=== PATIENT | female | born 1955 | race African-American/Black ===

== ENCOUNTER 2023-02-01 07:53 | Inpatient (IN) ==
[2023-02-01] MEDS ORDERED: NS 1,000 ML IV 1,000 ML IV ONE (08:18)
--- NOTE | 2023-02-01 08:18 | DR.GENAD ---
HPI Time Seen Time Seen by Provider: 02/01/23 08:17 PCP Primary Care Physician: Lan Complaint/Symptoms Chief Complaint Doctors Comments: 67 y/o female presents feeling ill past 2 days. started with nausea, vomiting. Developed diarrhea next day. Having a dry cough, with sensation of shortness of breath. Running low grade temp. Having abdominal soreness, thinks from vomiting, as well as slight sore throat. Feeling weak. Chief Complaint:: Patient states she had N&V on Tuesday which subsided, Diarrhea onset yesterday and SOB with dyspnea. COVID-19 Coronavirus risk:travel/contact w/high risk person: No Has patient experienced Coronavirus symptoms: Yes Coronavirus symptoms experienced: Shortness of Breath Nurses notes reviewed Nurses Notes Review: Yes Source History Provided: Patient Mode of Arrival Mode of Arrival: Ambulatory Timing Onset of Chief Complaint: 01/30/23 PMH PMH Past Medical History: Yes Past Medical History: Diabetes and Hypertension Past Surgical History: Yes Surgical History: Cholecystectomy, EXHIBIT CLEANER Surgery, Hysterectomy and Ortho Surgery Family History History of Family Medical Conditions: Yes Family Medical History: Diabetes Mellitus Social History Does patient currently use any type of tobacco product: No Have you used tobacco products in the last 12 months: No Type of Tobacco Use: None Does any household member use tobacco: No Alcohol Use: None Do you use any recreational Drugs:: No Lives With: Alone Lives Where: Home Travel Risk Coronavirus risk:travel/contact w/high risk person: No Has patient experienced Coronavirus symptoms: Yes Coronavirus symptoms experienced: Shortness of Breath Infectious screening In the last 2 months have you had wt loss of >10#?: NO Have you had fever, night sweats or hemotysis?: No Have you traveled outside the country in the last 6 months?: No Isolation: Standard ROS Review of Systems Constitutional: Chills, Fever and Weakness Eyes: No Symptoms Reported ENTM: No Symptoms Reported Respiratoy: Non-Productive Cough and Short of Breath Cardiovascular: No Symptoms Reported Gastrointestinal/Abdominal: Diarrhea, Nausea and Vomiting Genitourinary: No Symptoms Reported Neurological: No Symptoms Reported Musculoskeletal: No Symptoms Reported Integumentary: No Symptoms Reported Psychiatric: No Symptoms Reported All Other Systems: Reviewed and Negative PE Vital Signs Vitals: Pulse Rate 122 O2 Sat by Pulse Oximetry 97 General General Appearance: Alert and In No Apparent Distress Eyes Eye exam: PERRL and EOMI ENT ENT Exam: Normal Oropharynx and Mucous Membranes Moist Neck Neck Exam: Normal Inspection Respiratory Respiratory Exam: Normal Lung Sounds Bilat; negative Accessory Muscle Use or Respiratory Distress Cardiovascular Cardiovascular Exam: Regular Rate, Normal Rhythm and Normal Heart Sounds Abdominal Exam Abdominal Exam: Normal Bowel Sounds and Soft; negative Tenderness, Guarding or Rebound Extremities Extremities Exam: Normal Inspection Back Back Exam: Normal Inspection Neurologic Neurological Exam: Alert, Oriented X3 and CN II-XII Intact; negative Motor Sensory Deficit Skin Skin Exam: Warm and Dry COURSE Treatment Treatment: PT ill x 2 days, PE benign, good vital signs. W/u initiated. Given IV fluids. 1049 - CXR with cardiomegaly, + hazy due to body habitus, radiology reads as no CHF, but appears a bit wet to me. Labs show elevated glucose 415 (is an insulin dependent diabetic). Given 8U regular insulin IV. BNP a bit elevated at 219, given IV lasix, 20 mg. Covid/flu negative. Pt was doing better at rest, + exertional dyspnea going to the bathroom. Recommend observation admission for probable mild CHF. Discussed with Dr Pascual, accepts the admission. ROR Labs Reviewed Laboratory Results Reviewed?: Yes Result Diagrams: 02/01/23 08:53 02/01/23 08:53 Laboratory: WBC 16.8 X10^3/uL (3.6-10.0) H 02/01/23 08:53 RBC 3.55 X10^6/uL (3.5-5.4) 02/01/23 08:53 Hgb 10.3 g/dL (12.0-16.0) L 02/01/23 08:53 Hct 30.6 % (36.0-47.0) L 02/01/23 08:53 MCV 86.4 fL (80.0-100.0) 02/01/23 08:53 MCH 29.1 pg (27.0-34.0) 02/01/23 08:53 MCHC 33.7 g/dL (33.0-35.0) 02/01/23 08:53 RDW 14.4 % (11.6-16.5) 02/01/23 08:53 Plt Count 134 X10^3/uL (150.0-450.0) L 02/01/23 08:53 MPV 10.0 fL (7.4-11.0) 02/01/23 08:53 Neut % (Auto) 84.8 % (42.0-75.0) H 02/01/23 08:53 Lymph % (Auto) 8.9 % (21.0-51.0) L 02/01/23 08:53 [place] % (Auto) 5.8 % (0.0-13.0) 02/01/23 08:53 Eos % (Auto) 0.1 % (0.9-2.9) L 02/01/23 08:53 Baso % (Auto) 0.4 % (0.2-1.0) 02/01/23 08:53 Neut # (Auto) 14.3 x10^3/uL (2.2-4.8) H 02/01/23 08:53 Lymph # (Auto) 1.5 X10^3/uL (1.3-2.9) 02/01/23 08:53 [place] # (Auto) 1.0 x10^3/uL (0.3-0.8) H 02/01/23 08:53 Eos # (Auto) 0.0 x10^3/uL (0.0-0.2) 02/01/23 08:53 Baso # (Auto) 0.1 X10^3/uL (0.0-0.1) 02/01/23 08:53 Absolute Nucleated RBC 0.0 /100WBC 02/01/23 08:53 Sodium 130 mmol/L (136-145) L 02/01/23 08:53 Corrected Sodium 138 mmol/L (136-145) 02/01/23 08:53 Potassium 4.2 mmol/L (3.5-5.1) 02/01/23 08:53 Chloride 95 mmol/L (98-107) L 02/01/23 08:53 Carbon Dioxide 22.4 mmol/L (21-32) 02/01/23 08:53 BUN 32 mg/dL (7-18) H 02/01/23 08:53 Creatinine 1.89 mg/dL (0.55-1.02) H 02/01/23 08:53 Est GFR (MDRD) Af Amer 34 (>60) L 02/01/23 08:53 Est GFR (MDRD) Non-Af 28 (>60) L 02/01/23 08:53 Glucose 415 mg/dL (65-99) H 02/01/23 08:53 Calcium 8.2 mg/dL (8.5-10.1) L 02/01/23 08:53 Corrected Calcium 9.2 mg/dL (8.5-10.1) 02/01/23 08:53 Total Bilirubin 1.00 mg/dL (0.2-1.0) 02/01/23 08:53 AST 33 Units/L (15-37) 02/01/23 08:53 ALT 26 Units/L (12-78) 02/01/23 08:53 Alkaline Phosphatase 90 Units/L (46-116) 02/01/23 08:53 B-Natriuretic Peptide 219 pg/mL (0-79) H 02/01/23 08:53 Total Protein 6.8 g/dL (6.4-8.2) 02/01/23 08:53 Albumin 2.7 g/dL (3.4-5.0) L 02/01/23 08:53 Globulin 4.1 g/dL (2.5-4.5) 02/01/23 08:53 Albumin/Globulin Ratio 0.7 Ratio (1.1-2.1) L 02/01/23 08:53 Lipase 31 Units/L (73-393) L 02/01/23 08:53 Specimen Type Clean catch urine 02/01/23 10:26 Urine Color Yellow (YELLOW) 02/01/23 10:26 Urine Appearance Cloudy (CLEAR) 02/01/23 10:26 Urine pH 5.0 (5.0 - 8.0) 02/01/23 10:26 Ur Specific [place] 1.025 (1.000-1.030) 02/01/23 10:26 Urine Protein 3+ (NEGATIVE) 02/01/23 10:26 Urine Glucose (UA) 2+ (NEGATIVE) 02/01/23 10:26 Urine Ketones 2+ (NEGATIVE) 02/01/23 10:26 Urine Blood 4+ (NEGATIVE) 02/01/23 10:26 Urine Nitrite Negative (NEGATIVE) 02/01/23 10:26 Urine Bilirubin Negative (NEGATIVE) 02/01/23 10:26 Urine Urobilinogen 1+ (NORMAL) 02/01/23 10:26 Ur Leukocyte Esterase 3+ (NEGATIVE) 02/01/23 10:26 SARS-CoV-2 (PCR) Negative (NEGATIVE) 02/01/23 08:14 Influenza Type A (PCR) Negative (NEGATIVE) 02/01/23 08:14 Influenza Type B (PCR) Negative (NEGATIVE) 02/01/23 08:14 RSV (PCR) Negative (NEGATIVE) 02/01/23 08:14 Opioid Opioid Risk Tool Age (Walter box if 16-45): No History of Preadolescent Sexual Abuse: No Total: 0 Total Score Risk Category: Low Risk Copyright: J Luis AVALOS predicting aberrant behaviors Discharge Plan Diagnosis Discharge Problem: Congestive heart failure, Acute febrile illness Discharge Plan Patient Disposition: ADMITTED INPATIENT Condition: Stable Orders to Discharge Patient Discharge Orders: Transfer (Routine); Ordered 02/01/23 Ordered By: Min El
[2023-02-01] MEDS ORDERED: NS 1,000 ML IV 1,000 ML ONE (08:21)
--- NOTE | 2023-02-01 08:58 | RAD ---
HISTORYCough, dyspneaSTUDYChest AP portableCOMPARISONNoneFINDINGSPatient's body habitus limits the efficacy of portable radiography. The heart is enlarged. No congestive heart failure is noted. No definite acute alveolar infiltrates or pleural effusions are identified. Bony thorax is unremarkable.IMPRESSIONCardiomegaly without congestive heart failureNo definite infiltratesElectronically signed by: ESME PEREZ (February 01, 2023 08:56:57)
[2023-02-01] MEDS ORDERED: ZOFRAN INJ 4 MG VIAL IVP ONE (09:19)
[2023-02-01] MEDS ORDERED: ZOFRAN INJ 4 MG VIAL ONE (09:20)
[2023-02-01 09:26] LABS: BASOPHILS # (AUTO) 0.1 X10^3/uL (0.0-0.1); BASOPHILS % (AUTO) 0.4 % (0.2-1.0); EOSINOPHILS % (AUTO) 0.1 % (0.9-2.9); HEMATOCRIT 30.6 % (36.0-47.0); HEMOGLOBIN 10.3 g/dL (12.0-16.0); LYMPHOCYTES # (AUTO) 1.5 X10^3/uL (1.3-2.9); LYMPHOCYTES % (AUTO) 8.9 % (21.0-51.0); MEAN CORPUSCULAR HEMOGLOBIN 29.1 pg (27.0-34.0); MEAN CORPUSCULAR HGB CONC 33.7 g/dL (33.0-35.0); MEAN CORPUSCULAR VOLUME 86.4 fL (80.0-100.0); MONOCYTES % (AUTO) 5.8 % (0.0-13.0); NEUTROPHILS # (AUTO) 14.3 x10^3/uL (2.2-4.8); NEUTROPHILS % (AUTO) 84.8 % (42.0-75.0); PLATELET COUNT 134 X10^3/uL (150.0-450.0); RED BLOOD COUNT 3.55 X10^6/uL (3.5-5.4); RED CELL DISTRIBUTION WIDTH 14.4 % (11.6-16.5); WHITE BLOOD COUNT 16.8 X10^3/uL (3.6-10.0)
[2023-02-01 09:40] LABS: ALBUMIN 2.7 g/dL (3.4-5.0); CALCIUM 8.2 mg/dL (8.5-10.1); CARBON DIOXIDE 22.4 mmol/L (21-32); COR CA(FOR HYPOALB) 9.2 mg/dL (8.5-10.1); CREATININE 1.89 mg/dL (0.55-1.02); POTASSIUM 4.2 mmol/L (3.5-5.1); TOTAL PROTEIN 6.8 g/dL (6.4-8.2)
[2023-02-01 10:43] LABS: BILIRUBIN,URINE NEGATIVE (NEGATIVE); BLOOD/HEMOGLOBIN,URINE 4+ (NEGATIVE); GLUCOSE, URINE 2+ (NEGATIVE); KETONES,URINE 2+ (NEGATIVE); LEUKOCYTE ESTERASE ,URINE 3+ (NEGATIVE); NITRITES,URINE NEGATIVE (NEGATIVE); PROTEIN,URINE 3+ (NEGATIVE); UROBILINOGEN,URINE 1+ (NORMAL)
[2023-02-01 10:47] LABS: COLOR,URINE YELLOW (YELLOW)
[2023-02-01] MEDS ORDERED: NovoLIN R (or HumuLIN R) ONE ×3 (10:48→16:43)
[2023-02-01] MEDS ORDERED: NovoLIN R (or HumuLIN R) IV ONE (10:48)
[2023-02-01] MEDS ORDERED: LASIX IVP ONE (10:49)
[2023-02-01 10:54] LABS: APPEARANCE,URINE CLOUDY (CLEAR)
[2023-02-01] MEDS ORDERED: LASIX ONE ×2 (10:58→16:24)
[2023-02-01] MEDS ORDERED: TYLENOL 500 MG TAB EXTRA STRENGTH PO ONE ×2 (12:46→16:47)
[2023-02-01] MEDS ORDERED: TYLENOL 500 MG TAB EXTRA STRENGTH PO STA (12:53)
[2023-02-01] MEDS ORDERED: LOVENOX INJ 30 MG SYR SC ONE (16:24)
[2023-02-01] MEDS: LOVENOX INJ 30 MG SYR SC SCH (16:37)
[2023-02-01] MEDS: LASIX IVP SCH (16:41)
[2023-02-01] MEDS: NovoLIN R (or HumuLIN R) SUBCUT PRN ×2 (16:46→20:41)
[2023-02-01] MEDS: TYLENOL 500 MG TAB EXTRA STRENGTH PO PRN ×2 (16:48→22:52)
[2023-02-01] MEDS ORDERED: LOMOTIL PO PRN (17:30)
[2023-02-01] MEDS ORDERED: SNACK - Diabetic Appropriate PO SCH ×2 (20:00)
[2023-02-01] MEDS: SNACK - Diabetic Appropriate PO SCH (20:10)
[2023-02-01] MEDS: AMARYL TAB 4 MG PO SCH (20:38)
[2023-02-01] MEDS ORDERED: PROVENTIL NEB TX 0.083% 2.5MG/ 3ML ONE (22:23)
[2023-02-01] MEDS ORDERED: XOPENEX 1.25 MG/3 ML NEBULE NEB ONE (22:25)
[2023-02-01] MEDS: ZOFRAN INJ 4 MG VIAL IVP PRN (22:33)
[2023-02-02 05:15] LABS: BASOPHILS % (AUTO) 0.2 % (0.2-1.0); EOSINOPHILS % (AUTO) 0.2 % (0.9-2.9); HEMATOCRIT 27.9 % (36.0-47.0); HEMOGLOBIN 9.4 g/dL (12.0-16.0); LYMPHOCYTES # (AUTO) 1.1 X10^3/uL (1.3-2.9); LYMPHOCYTES % (AUTO) 6.6 % (21.0-51.0); MEAN CORPUSCULAR HEMOGLOBIN 29.2 pg (27.0-34.0); MEAN CORPUSCULAR HGB CONC 33.8 g/dL (33.0-35.0); MEAN CORPUSCULAR VOLUME 86.4 fL (80.0-100.0); MEAN PLATELET VOLUME 10.3 fL (7.4-11.0); MONOCYTES # (AUTO) 1.1 x10^3/uL (0.3-0.8); MONOCYTES % (AUTO) 6.2 % (0.0-13.0); NEUTROPHILS # (AUTO) 14.9 x10^3/uL (2.2-4.8); NEUTROPHILS % (AUTO) 86.8 % (42.0-75.0); PLATELET COUNT 104 X10^3/uL (150.0-450.0); RED BLOOD COUNT 3.23 X10^6/uL (3.5-5.4); RED CELL DISTRIBUTION WIDTH 14.5 % (11.6-16.5); WHITE BLOOD COUNT 17.1 X10^3/uL (3.6-10.0)
[2023-02-02 05:26] LABS: ALBUMIN 2.2 g/dL (3.4-5.0); CARBON DIOXIDE 24.8 mmol/L (21-32); COR CA(FOR HYPOALB) 9.4 mg/dL (8.5-10.1); CREATININE 1.9 mg/dL (0.55-1.02); POTASSIUM 3.8 mmol/L (3.5-5.1); TOTAL PROTEIN 6.1 g/dL (6.4-8.2)
[2023-02-02 05:44] LABS: BAND NEUTROPHILS % 7 % (0-10); PLATELET MORPHOLOGY COMMENT NORMAL (NORMAL)
[2023-02-02] MEDS: NovoLIN R (or HumuLIN R) SUBCUT PRN ×4 (05:45→20:40)
[2023-02-02] MEDS ORDERED: XOPENEX 1.25 MG/3 ML NEBULE NEB PRN (06:11)
[2023-02-02] MEDS: APRESOLINE TAB 25 MG PO SCH (08:37)
[2023-02-02] MEDS: LOVENOX INJ 30 MG SYR SC SCH (08:37)
[2023-02-02] MEDS: LASIX IVP SCH (08:37)
[2023-02-02] MEDS: AMARYL TAB 4 MG PO SCH ×2 (08:37→20:30)
[2023-02-02] MEDS: ZOFRAN INJ 4 MG VIAL IVP PRN (08:41)
[2023-02-02] MEDS: XOPENEX 1.25 MG/3 ML NEBULE NEB PRN (12:11)
[2023-02-02] MEDS ORDERED: CATAPRES TAB 0.1 MG PO ONE ×2 (12:57→18:32)
[2023-02-02] MEDS: ROCEPHIN VIAL 1 GRAM 1 G in NS 100 ML IV 100 ML IV SCH (12:58)
[2023-02-02] MEDS: NS 1,000 ML IV 1,000 ML IV SCH (12:58)
[2023-02-02] MEDS ORDERED: CATAPRES TAB 0.1 MG ONE ×2 (12:59→18:35)
[2023-02-02] MEDS: MYCOLOG-II CREAM TOP SCH ×2 (14:17→20:43)
[2023-02-02] MEDS: SNACK - Diabetic Appropriate PO SCH (20:43)
[2023-02-02] MEDS: TYLENOL 500 MG TAB EXTRA STRENGTH PO PRN (20:49)
--- NOTE | 2023-02-02 22:47 | RAD ---
HISTORYcentral line placementSTUDYCHEST, 1 VIEWCOMPARISONNone.TECHNIQUEA single frontal view of the chest was obtained.FINDINGSThere is a left subclavian central line with its tip overlying the expected location of the superior vena cava. There are multiple EKG leads and wires seen overlying the patient. There is moderate cardiomegaly with left ventricular hypertrophy. There is no focal infiltrate. There is no effusion. There is no pneumothorax. The osseous structures are intact.IMPRESSIONLeft central line in situ.No focal infiltrate or effusion.Moderate cardiomegaly.Electronically signed by: Shelly Lin (February 02, 2023 22:45:46)
--- NOTE | 2023-02-02 22:50 | DR.H&P ---
H&P - History & Physical for Day of: H&P Date: 02/01/23 - Chief Complaint Chief Complaint: ABDOMINAL TENDERNESS, NAUSEA, VOMITING, WEAKNESS, SHORTNESS OF BREATH - History of Present Illness History of Present Illness: IS A 67 YEAR OLD PATIENT OF . SHE PRESENED TO THE ER WITH COMPLAINTS OF NAUSEA, VOMITING, AND DIARRHEA FOR THE PAST TWO DAYS. SHE ALSO REPORTS HAVING A NON-PRODUCTIVE COUGH AND SHORTNESS OF BREATH. SHE ADMITS TO FEVER, ABDOMINAL TENDERNESS, GENERALIZED WEAKNESS, AND A SLIGHT SORE THROAT. SHORTNESS OF BREATH IS WORSE ON EXERTION. HER PMH INCLUDES DM II, HTN, ARTHRITIS, CHOLECYSTECTOMY, DIRECTOR CARD SURGERY, HYSTERECTOMY, AND ORTHO SURGERY. SHE CURRENTLY TAKES LASIX 40MG DAILY FOR FREQUENT SWELLING OF THE LOWER EXTREMITIES, BUT DENIES DIAGNOSIS OF SHORTNESS OF BREATH. ON ARRIVAL TO THE HOSPITAL, HER VITAS WERE 101.3-103-20-96%-141/69. LABS WERE OBTAINED. WBC 16.8, RBC 3.55, HGB 10.3, HCT 30.6, PLT COUNT 134, SODIUM 130, POTASSIUM 4.2, CHLORIDE 95, BUN 32, CREATININE 1.89, GLUCOSE 415, CALCIUM 8.2, TOTAL BILI 1.00, AST 33, ALT 26, ALK PHOS 90, BNP 219, TOTAL PROTEIN 6.8, ALBUMIN 2.7, LIPASE 31. A URINALYSIS WAS OBTAINED AND REVEALED: LEUKOCYTES 3+, BLOOD 4+, PROTEIN 3+, KETONES 2+, NITRITES NEGATIVE. COVID, INFLUENZA, AND RSV WERE NEGATIVE. URINE AND BLOOD CULTURES WERE SET UP. A CHEST XRAY WAS OBTAINED. Patient's body habitus limits the efficacy of portable radiography. The heart is enlarged. No congestive heart failure is noted. No definite acute alveolar infiltrates or pleural effusions are identified. Bony thorax is unremarkable. IN THE ER, SHE WAS GIVEN A NORMAL SALINE BOLUS, ZOFRAN 4MG IV X 1 DOSE, HUMULIN R 8 UNITS IV X 2, LASIX 20MG IV X 1, XOPENEX NEB X 1, AND TYLENOL 1G PO X 1. SHE WAS ADMITTED TO THE HOSPITAL INPATIENT STATUS FOR FURTHER EVALUATION AND TREATMENT OF URINARY TRACT INFECTION, SUSPECTED SEPSIS, ACUTE RENAL INSUFFICIENCY, DEHYDRATION, INTRACTABLE NAUSEA AND VOMITING, AND SHORTNESS OF BREATH. SHE WAS STARTED ON NORMAL SALINE AT 75 ML/HR, CEFTRIAXONE 1G IV DAILY, OTBS ACHS, HUMULIN R SLIDING SCALE, ZOFRAN 4MG IV Q6H PRN, XOPENEX NEBS QID PRN, LOVENOX 30MG SC DAILY, TYLENOL 1G PO Q6H PRN, LOMOTIL BID PRN, AMARYL 4MG PO BID, APRESOLINE 50MG DAILY. OTHERWISE, WE PLAN TO FOLLOW-UP WITH AM LABS AND CONTINUE TO MONITOR. TIME SPENT ON CLINICAL ASSESSMENT, REVIEWING LABS AND IMAGING, DECISION MAKING, AND DOCUMENTATION GREATER THAN 45 MINUTES. PRELIMINARY URINE CULTURE IS POSITIVE FOR GRAM NEGATIVE RODS. IT WAS ALSO REPORTED THAT POSITIVE BLOOD CULTURES WERE DETECTED. - Past Medical History Past Medical History: Arthritis, Diabetes, Hypertension - Past Surgical History Surgical History: Cholecystectomy, Hysterectomy, Ortho Surgery - Family History Family Medical History: Diabetes Mellitus - Social History Does patient currently use any type of tobacco product: No Have you used tobacco products in the last 12 months: No Type of Tobacco Use: None Does any household member use tobacco: No Alcohol Use: None Drug Use: None - Medications Home Medications: No Known Allergies Allergy (Verified 02/01/23 13:51) CONTINUE taking the following medications diphenoxylate-atropine 2.5 mg-0.025 mg tablet (Lomotil) 1 tab PO BID PRN 02/01/23 [History] furosemide 40 mg tablet (Lasix) 40 mg PO DAILY 02/01/23 [History] glimepiride 4 mg tablet 4 mg PO BID 02/01/23 [History] hydralazine 50 mg tablet 50 mg PO DAILY 02/01/23 [History] ibuprofen 800 mg tablet 800 mg PO BID PRN 02/01/23 [History] - Review of Systems Constitutional: Fever, Chills, Weakness Eyes: No Symptoms Reported ENT: No Symptoms Reported Respiratory: Cough, Shortness of Breath, SOB with Excertion Cardiovascular: No Symptoms Reported Gastrointestinal: Nausea, Vomiting, Abdominal Pain Genitourinary: Dysuria Musculoskeletal: No Symptoms Reported Skin: No Symptoms Reported Neurological: Weakness - Physical Exam Vital Signs: Temperature 100 F Pulse Rate [Left Radial] 104 Pulse Rate 115 Respiratory Rate 24 Blood Pressure [Left Arm] 136/64 Blood Pressure 141/69 O2 Sat by Pulse Oximetry 99 Oriented: Normal Eyes: Normal Ear: Normal Nose: Normal Throat: Normal Respiratory: Diminished Throughout Cardiovascular: Edema (TRACE EDEMA TO BILATERAL LOWER EXTREMITIES ) : Normal Auscultation: Bowel Sounds: Normal Palpation: Normal Tenderness: Suprapubic Skin: Normal Musculoskeletal: Normal Psychiatric: Normal Mood Description: Calm Affect: Normal Speech Pattern: Clear - Assessment/Plan (1) Urinary tract infection Qualifiers: Urinary tract infection type: acute cystitis Hematuria presence: with hematuria Qualified Code(s): N30.01 - Acute cystitis with hematuria Status: Acute Plan: ADMIT, NORMAL SALINE AT 75 ML/HR, CEFTRIAXONE 1G IV DAILY, OTBS ACHS, HUMULIN R SLIDING SCALE, ZOFRAN 4MG IV Q6H PRN, XOPENEX NEBS QID PRN, LOVENOX 30MG SC DAILY, TYLENOL 1G PO Q6H PRN, LOMOTIL BID PRN, AMARYL 4MG PO BID, APRESOLINE 50MG DAILY. (2) Sepsis Qualifiers: Sepsis type: sepsis due to unspecified organism Severe sepsis acute organ dysfunction type: acute renal failure Severe sepsis shock status: without septic shock Status: Acute (3) Acute renal insufficiency Status: Acute (4) Dehydration Status: Acute (5) Intractable nausea and vomiting Status: Acute (6) Shortness of breath Status: Acute (7) Hypertension Qualifiers: Hypertension type: primary hypertension Qualified Code(s): I10 - Essential (primary) hypertension Status: Chronic (8) Diabetes mellitus Qualifiers: Diabetes mellitus type: type 2 Diabetes mellitus tank terminal gauger insulin use: with tank terminal gauger use Diabetes mellitus complication status: with hyperglycemia Qualified Code(s): E11.65 - Type 2 diabetes mellitus with hyperglycemia; Z79.4 - tank terminal gauger (current) use of insulin Status: Chronic - Allergies Allergies/Adverse Reactions: Allergies Allergy/AdvReac Type Severity Reaction Status Date / Time No Known Allergies Allergy Verified 02/01/23 13:51
[2023-02-03] MEDS: XOPENEX 1.25 MG/3 ML NEBULE NEB PRN ×4 (02:25→21:39)
[2023-02-03] MEDS: NS 1,000 ML IV 1,000 ML IV SCH ×4 (02:29→20:36)
[2023-02-03] MEDS: TYLENOL 500 MG TAB EXTRA STRENGTH PO PRN ×3 (02:50→20:42)
[2023-02-03 05:04] LABS: BASOPHILS % (AUTO) 0.3 % (0.2-1.0); EOSINOPHILS # (AUTO) 0.1 x10^3/uL (0.0-0.2); EOSINOPHILS % (AUTO) 0.5 % (0.9-2.9); HEMATOCRIT 27.6 % (36.0-47.0); HEMOGLOBIN 9.3 g/dL (12.0-16.0); LYMPHOCYTES # (AUTO) 0.9 X10^3/uL (1.3-2.9); MEAN CORPUSCULAR HEMOGLOBIN 28.9 pg (27.0-34.0); MEAN CORPUSCULAR HGB CONC 33.8 g/dL (33.0-35.0); MEAN CORPUSCULAR VOLUME 85.6 fL (80.0-100.0); MEAN PLATELET VOLUME 10.2 fL (7.4-11.0); MONOCYTES # (AUTO) 0.4 x10^3/uL (0.3-0.8); MONOCYTES % (AUTO) 3.3 % (0.0-13.0); NEUTROPHILS # (AUTO) 10.9 x10^3/uL (2.2-4.8); NEUTROPHILS % (AUTO) 88.9 % (42.0-75.0); PLATELET COUNT 94 X10^3/uL (150.0-450.0); RED BLOOD COUNT 3.22 X10^6/uL (3.5-5.4); RED CELL DISTRIBUTION WIDTH 14.5 % (11.6-16.5); WHITE BLOOD COUNT 12.3 X10^3/uL (3.6-10.0)
[2023-02-03 05:13] LABS: CALCIUM 7.7 mg/dL (8.5-10.1); CARBON DIOXIDE 21.7 mmol/L (21-32); COR CA(FOR HYPOALB) 9.3 mg/dL (8.5-10.1); CREATININE 1.89 mg/dL (0.55-1.02); POTASSIUM 3.3 mmol/L (3.5-5.1); TOTAL PROTEIN 6.2 g/dL (6.4-8.2)
[2023-02-03 05:14] LABS: PLATELET MORPHOLOGY COMMENT NORMAL (NORMAL)
--- NOTE | 2023-02-03 05:50 | RAD ---
HISTORYShortness of breathSTUDYSingle-view [id number] trachea is midline. The cardiac silhouette is enlarged with a tortuous thoracic aorta. Stable left-sided central venous catheter is observed. The lungs are clear without focal infiltrate or effusion. The bony thorax is unremarkable.IMPRESSIONNo acute cardiopulmonary disease.Electronically signed by: COLLIN CABRERA (February 03, 2023 05:49:03)
[2023-02-03] MEDS: NovoLIN R (or HumuLIN R) SUBCUT PRN ×3 (06:18→18:03)
[2023-02-03] MEDS ORDERED: BUTT CREAM (COMPOUND) ONE (07:57)
[2023-02-03] MEDS: APRESOLINE TAB 25 MG PO SCH (10:11)
[2023-02-03] MEDS: AMARYL TAB 4 MG PO SCH ×2 (10:11→20:36)
[2023-02-03] MEDS: ROCEPHIN VIAL 1 GRAM 1 G in NS 100 ML IV 100 ML IV SCH (10:12)
[2023-02-03] MEDS: MYCOLOG-II CREAM TOP SCH ×2 (10:30→20:47)
[2023-02-03] MEDS: SNACK - Diabetic Appropriate PO SCH (20:36)
[2023-02-03] MEDS: ULTRAM PO PRN (22:58)
[2023-02-04] MEDS: ULTRAM PO PRN ×2 (04:29→20:58)
[2023-02-04] MEDS: NS 1,000 ML IV 1,000 ML IV SCH ×2 (05:08→19:02)
[2023-02-04 05:10] LABS: BASOPHILS % (AUTO) 0.3 % (0.2-1.0); EOSINOPHILS % (AUTO) 0.3 % (0.9-2.9); HEMATOCRIT 27.2 % (36.0-47.0); HEMOGLOBIN 9.2 g/dL (12.0-16.0); LYMPHOCYTES # (AUTO) 1.4 X10^3/uL (1.3-2.9); LYMPHOCYTES % (AUTO) 10.8 % (21.0-51.0); MEAN CORPUSCULAR HEMOGLOBIN 28.9 pg (27.0-34.0); MEAN CORPUSCULAR HGB CONC 33.6 g/dL (33.0-35.0); MEAN CORPUSCULAR VOLUME 85.9 fL (80.0-100.0); MEAN PLATELET VOLUME 10.3 fL (7.4-11.0); MONOCYTES # (AUTO) 1.2 x10^3/uL (0.3-0.8); MONOCYTES % (AUTO) 9.3 % (0.0-13.0); NEUTROPHILS # (AUTO) 10.4 x10^3/uL (2.2-4.8); NEUTROPHILS % (AUTO) 79.3 % (42.0-75.0); PLATELET COUNT 96 X10^3/uL (150.0-450.0); RED BLOOD COUNT 3.17 X10^6/uL (3.5-5.4); RED CELL DISTRIBUTION WIDTH 14.7 % (11.6-16.5)
[2023-02-04 05:27] LABS: ALBUMIN 1.9 g/dL (3.4-5.0); CALCIUM 7.9 mg/dL (8.5-10.1); CARBON DIOXIDE 22.2 mmol/L (21-32); COR CA(FOR HYPOALB) 9.6 mg/dL (8.5-10.1); CREATININE 1.51 mg/dL (0.55-1.02); MAGNESIUM 1.7 mg/dL (2.0-2.9); POTASSIUM 3.5 mmol/L (3.5-5.1); TOTAL PROTEIN 6.3 g/dL (6.4-8.2)
[2023-02-04] MEDS: NovoLIN R (or HumuLIN R) SUBCUT PRN ×4 (05:59→20:58)
[2023-02-04] MEDS: XOPENEX 1.25 MG/3 ML NEBULE NEB PRN ×2 (07:59→19:43)
[2023-02-04] MEDS: ROCEPHIN VIAL 1 GRAM 1 G in NS 100 ML IV 100 ML IV SCH (08:29)
[2023-02-04] MEDS: AMARYL TAB 4 MG PO SCH ×2 (08:30→20:57)
[2023-02-04] MEDS: APRESOLINE TAB 25 MG PO SCH (08:30)
[2023-02-04] MEDS: MYCOLOG-II CREAM TOP SCH ×2 (08:31→20:59)
[2023-02-04] MEDS: INVanz INJ 1 GRAM VIAL 1 G in NS 100 ML IV 100 ML IV SCH (09:05)
[2023-02-04] MEDS: VSL#3 PO SCH (11:20)
[2023-02-04] MEDS: ZOFRAN INJ 4 MG VIAL IVP PRN (15:10)
[2023-02-04] MEDS: TYLENOL 500 MG TAB EXTRA STRENGTH PO PRN (16:31)
--- NOTE | 2023-02-04 17:37 | DR.OPNOTE ---
OP NOTE Pre-Op Diagnosis: congestive heart failure, lack of IV access Post-Op Diagnosis: same Procedure Date Date Of Procedure: 02/02/23 Procedure: PROCEDURE: LEFT SUBCLAVIAN VEIN CENTRAL VENOUS ACCESS. NARRATIVE: The patient was in the ICU and placed in Trendelenburg position. The left neck and chest prepped and draped is sterile fashion. The skin underlying the left clavicle infiltrated with 1% Xylocaine . 16 gauge needle used to puncture the left subclavian vein with aspiration of blood. 0.035 inch guide wire placed. Incision made over the guide wire with a number 11 knife blade and a dilator place over the guide wire into the left subclavian vein. The dilator was removed and the catheter threaded over guide wire into the left subclavian vein . All three ports were aspirated of blood and flushed with heparinized saline . The catheter secured to the skin with interrupted silk sutures . Sterile dressing applied Post-procedure chest x-ray showed good placement and no pneumothorax. Patient tolerated this well. Type of Anesthesia: Local (1 % Xylocaine ) Findings: as above Type of Fluids Used:: Normal Saline EBL: minimal Complications:: none Disposition/Condition: Pt. tolerated procedure without difficulty.
[2023-02-04] MEDS: SNACK - Diabetic Appropriate PO SCH (19:02)
[2023-02-04] MEDS ORDERED: K-RIDER 10 MEQ/NS 100 ML 10 MEQ/100 ML BAG IV PRN (20:27)
[2023-02-04] MEDS ORDERED: KLOR-CON PO PRN (20:27)
[2023-02-04] MEDS ORDERED: POTASSIUM CHL 40 MEQ/NS 0.45% 500 ML IV PRN (20:27)
[2023-02-04] MEDS ORDERED: K-DUR TAB 20 MEQ PO PRN (20:27)
[2023-02-04] MEDS ORDERED: MICRO K EXTEN CAP 10 MEQ PO PRN (20:27)
[2023-02-04] MEDS ORDERED: POTASSIUM CHLORIDE LIQ 20 MEQ UDC PO PRN (20:27)
[2023-02-04] MEDS ORDERED: POTASSIUM CHL 60 MEQ/NS 0.45% 500 ML IV PRN (20:27)
[2023-02-04] MEDS: MAGNESIUM SULFATE 1 GRAM/100 mL PREMIX 1 G/100 ML BAG IV PRN ×2 (20:58→23:00)
[2023-02-04] MEDS: BUTT CREAM (COMPOUND) TOP PRN (20:59)
[2023-02-04] MEDS: NORCO 5/325 MG TAB PO PRN (23:00)
[2023-02-04] MEDS ORDERED: MORPHINE SULFATE INJ 2 MG INJ IVP PRN (23:59)
[2023-02-05] MEDS: ULTRAM PO PRN ×2 (01:16→20:34)
--- NOTE | 2023-02-05 01:25 | PCM.PROG ---
Progress Note - Progress Note for Day of Date of Exam: 02/03/23 - Subjective Subjective: IS CURRENTLY INPATIENT STATUS FOR TREATMENT OF SEPSIS DUE TO UTI, ACUTE RENAL INSUFFICIENCY, DEHYDRATION, INTRACTABLE NAUSEA AND VOMITING, AND SHORTNESS OF BREATH. SHE HAS A PMH OF HTN AND DM II. TODAY, SHE IS ALERT AND ORIENTED, SITTING UP IN CHAIR ON MORNING ROUNDS. SHE CONTINUES TO COMPLAIN OF SUPRAPUBIC PAIN AND NAUSEA THIS MORNING. SHE DOES REPORT SLIGHT IMPROVEMENT IN SYMPTOMS TODAY. ON EXAMINATION, HEART IS REGULAR IN RATE AND RHYTHM. BILATERAL LUNGS ARE NOTED WITH DIMINISHED LUNG SOUNDS THROUGHOUT. ABDOMEN IS ROUND, SOFT, AND NOTED WITH SUPRAPUBIC TENDERNESS. GOOD MOVEMENT NOTED TO UPPER AND LOWER EXTREMITIES. TRACE EDEMA NOTED TO BILATERAL LOWER EXTREMITIES. HER VITALS THIS MORNING ARE: 97.5-93-25-100%-102/54. LABS WERE OBTAINED. WBC 12.3, RBC 3.22, HGB 9.3, HCT 27.6, PLT COUNT 94, SODIUM 129, POTASSIUM 3.3, CHLORIDE 94, BUN 39, CREATININE 1.89, GLUCOSE 233, CALCIUM 7.7, TOTAL BILI 1.40, AST 27, ALT 24, ALK PHOS 111, TOTAL PROTEIN 6.2, ALBUMIN 2.0. URINE AND BLOOD CULTURES ARE PENDING. PRELIMINARY CULTURES ARE POSITIVE FOR GROWTH OF GRAM NEGATIVE RODS. A CHEST XRAY WAS OBTAINED AND REVEALED: trachea is midline. The cardiac silhouette is enlarged with a tortuous thoracic aorta. Stable left-sided central venous catheter is observed. The lungs are clear without focal infiltrate or effusion. The bony thorax is unremarkable. SHE IS CURRENTLY RECEIVING NORMAL SALINE AT 75 ML/HR, CEFTRIAXONE 1G IV DAILY, OTBS ACHS, HUMULIN R SLIDING SCALE, ZOFRAN 4MG IV Q6H PRN, XOPENEX NEBS QID PRN, LOVENOX 30MG SC DAILY, TYLENOL 1G PO Q6H PRN, LOMOTIL BID PRN, AMARYL 4MG PO BID, APRESOLINE 50MG DAILY. WE WILL CONTINUE WITH CURRENT PLAN OF CARE TODAY. OTHERWISE, WE PLAN TO FOLLOW-UP WITH AM LABS AND CONTINUE TO MONITOR. TIME SPENT ON CLINICAL ASSESSMENT, REVIEWING LABS AND IMAGING, DECISION MAKING, AND DOCUMENTATION GREATER THAN 45 MINUTES. - Past Medical Family Social History Past Med/Fam/Surg Hx: No changes since H&P Allergies: Allergies No Known Allergies Allergy (Verified 02/01/23 13:51) - Review of Systems ROS: No change since H&P - Vital Signs and I&O's Vital Signs: Temperature 98.7 F Pulse Rate [Left Radial] 94 Pulse Rate 100 Respiratory Rate 24 Blood Pressure [Left Arm] 126/59 Blood Pressure 164/90 O2 Sat by Pulse Oximetry 97 Intake and Output: Intake & Output 02/02/23 02/03/23 02/04/23 02/05/23 11:59 11:59 11:59 11:59 Intake Total 1080 / 1080 2987 / 2987 4706 / 4706 1806 / 1806 Balance 1080 / 1080 2987 / 2987 4706 / 4706 1806 / 1806 - Physical Exam Oriented: Normal Eyes: Normal Ear: Normal Nose: Normal Throat: Normal Respiratory: Generalized, Diminished Cardiovascular: Edema (TRACE EDEMA TO BILATERAL LOWER EXTREMITIES ) : Normal Auscultation: Bowel Sounds: Normal Palpation: Normal Tenderness: Suprapubic Skin: Normal Musculoskeletal: Normal Psychiatric: Normal Mood Description: Calm Affect: Normal Speech Pattern: Clear - Laboratory and Diagnostics Result Diagrams: 02/04/23 04:12 02/04/23 04:12 Labs: 02/01/23 22:36 Blood Blood Culture - Final Escherichia Coli 02/01/23 22:30 Blood Blood Culture - Final Escherichia Coli 02/01/23 10:24 Urine,Clean Catch Urine Culture - Final Escherichia Coli Laboratory WBC 13.0 X10^3/uL (3.6-10.0) H 02/04/23 04:12 RBC 3.17 X10^6/uL (3.5-5.4) L 02/04/23 04:12 Hgb 9.2 g/dL (12.0-16.0) L 02/04/23 04:12 Hct 27.2 % (36.0-47.0) L 02/04/23 04:12 MCV 85.9 fL (80.0-100.0) 02/04/23 04:12 MCH 28.9 pg (27.0-34.0) 02/04/23 04:12 MCHC 33.6 g/dL (33.0-35.0) 02/04/23 04:12 RDW 14.7 % (11.6-16.5) 02/04/23 04:12 Plt Count 96 X10^3/uL (150.0-450.0) L 02/04/23 04:12 Plt Count Comment Decreased (ADEQUATE) A 02/03/23 04:13 MPV 10.3 fL (7.4-11.0) 02/04/23 04:12 Neut % (Auto) 79.3 % (42.0-75.0) H 02/04/23 04:12 Lymph % (Auto) 10.8 % (21.0-51.0) L 02/04/23 04:12 [place] % (Auto) 9.3 % (0.0-13.0) 02/04/23 04:12 Eos % (Auto) 0.3 % (0.9-2.9) L 02/04/23 04:12 Baso % (Auto) 0.3 % (0.2-1.0) 02/04/23 04:12 Neut # (Auto) 10.4 x10^3/uL (2.2-4.8) H 02/04/23 04:12 Lymph # (Auto) 1.4 X10^3/uL (1.3-2.9) 02/04/23 04:12 [place] # (Auto) 1.2 x10^3/uL (0.3-0.8) H 02/04/23 04:12 Eos # (Auto) 0.0 x10^3/uL (0.0-0.2) 02/04/23 04:12 Baso # (Auto) 0.0 X10^3/uL (0.0-0.1) 02/04/23 04:12 Absolute Nucleated RBC 0.0 /100WBC 02/04/23 04:12 Total Counted 100 02/03/23 04:13 Neutrophils % (Manual) 92 % (39-76) H 02/03/23 04:13 Band Neutrophils % 7 % (0-10) 02/02/23 04:01 Lymphocytes % (Manual) 7 % (13-43) L 02/03/23 04:13 Monocytes % (Manual) 1 % (4-9) L 02/03/23 04:13 Plt Morphology Comment Normal (NORMAL) 02/03/23 04:13 RBC Morphology Normal (NORMAL) 02/03/23 04:13 Sodium 130 mmol/L (136-145) L 02/04/23 04:12 Corrected Sodium 134 mmol/L (136-145) L 02/04/23 04:12 Potassium 3.5 mmol/L (3.5-5.1) 02/04/23 04:12 Chloride 96 mmol/L (98-107) L 02/04/23 04:12 Carbon Dioxide 22.2 mmol/L (21-32) 02/04/23 04:12 BUN 41 mg/dL (7-18) H 02/04/23 04:12 Creatinine 1.51 mg/dL (0.55-1.02) H 02/04/23 04:12 Est GFR (MDRD) Af Amer 44 (>60) L 02/04/23 04:12 Est GFR (MDRD) Non-Af 37 (>60) L 02/04/23 04:12 Glucose 265 mg/dL (65-99) H 02/04/23 04:12 POC Glucose (mg/dL) 271 mg/dL (65-99) H 02/04/23 19:18 Calcium 7.9 mg/dL (8.5-10.1) L 02/04/23 04:12 Corrected Calcium 9.6 mg/dL (8.5-10.1) 02/04/23 04:12 Magnesium 1.7 mg/dL (2.0-2.9) L 02/04/23 04:12 Total Bilirubin 0.80 mg/dL (0.2-1.0) 02/04/23 04:12 AST 22 Units/L (15-37) 02/04/23 04:12 ALT 25 Units/L (12-78) 02/04/23 04:12 Alkaline Phosphatase 93 Units/L (46-116) 02/04/23 04:12 B-Natriuretic Peptide 219 pg/mL (0-79) H 02/01/23 08:53 Total Protein 6.3 g/dL (6.4-8.2) L 02/04/23 04:12 Albumin 1.9 g/dL (3.4-5.0) L 02/04/23 04:12 Globulin 4.4 g/dL (2.5-4.5) 02/04/23 04:12 Albumin/Globulin Ratio 0.4 Ratio (1.1-2.1) L 02/04/23 04:12 Lipase 31 Units/L (73-393) L 02/01/23 08:53 Specimen Type Clean catch urine 02/01/23 10:26 Urine Color Yellow (YELLOW) 02/01/23 10:26 Urine Appearance Cloudy (CLEAR) 02/01/23 10:26 Urine pH 5.0 (5.0 - 8.0) 02/01/23 10:26 Ur Specific [place] 1.025 (1.000-1.030) 02/01/23 10:26 Urine Protein 3+ (NEGATIVE) 02/01/23 10:26 Urine Glucose (UA) 2+ (NEGATIVE) 02/01/23 10:26 Urine Ketones 2+ (NEGATIVE) 02/01/23 10:26 Urine Blood 4+ (NEGATIVE) 02/01/23 10:26 Urine Nitrite Negative (NEGATIVE) 02/01/23 10:26 Urine Bilirubin Negative (NEGATIVE) 02/01/23 10:26 Urine Urobilinogen 1+ (NORMAL) 02/01/23 10:26 Ur Leukocyte Esterase 3+ (NEGATIVE) 02/01/23 10:26 SARS-CoV-2 (PCR) Negative (NEGATIVE) 02/01/23 08:14 Influenza Type A (PCR) Negative (NEGATIVE) 02/01/23 08:14 Influenza Type B (PCR) Negative (NEGATIVE) 02/01/23 08:14 RSV (PCR) Negative (NEGATIVE) 02/01/23 08:14 - Plan (1) Urinary tract infection Status: Acute Qualifiers: Urinary tract infection type: acute cystitis Hematuria presence: with hematuria Qualified Code(s): N30.01 - Acute cystitis with hematuria Plan: NORMAL SALINE AT 75 ML/HR, CEFTRIAXONE 1G IV DAILY, OTBS ACHS, HUMULIN R SLIDING SCALE, ZOFRAN 4MG IV Q6H PRN, XOPENEX NEBS QID PRN, LOVENOX 30MG SC DAILY, TYLENOL 1G PO Q6H PRN, LOMOTIL BID PRN, AMARYL 4MG PO BID, APRESOLINE 50MG DAILY. (2) Sepsis Status: Acute Qualifiers: Sepsis type: sepsis due to unspecified organism Severe sepsis acute organ dysfunction type: acute renal failure Severe sepsis shock status: without septic shock (3) Acute renal insufficiency Status: Acute (4) Dehydration Status: Acute (5) Intractable nausea and vomiting Status: Acute (6) Shortness of breath Status: Acute (7) Hypertension Status: Chronic Qualifiers: Hypertension type: primary hypertension Qualified Code(s): I10 - Essential (primary) hypertension (8) Diabetes mellitus Status: Chronic Qualifiers: Diabetes mellitus type: type 2 Diabetes mellitus terminal gauger insulin use: with terminal gauger use Diabetes mellitus complication status: with hyperglycemia Qualified Code(s): E11.65 - Type 2 diabetes mellitus with hyperglycemia; Z79.4 - [facility]CI (current) use of insulin
[2023-02-05] MEDS: XOPENEX 1.25 MG/3 ML NEBULE NEB PRN ×2 (04:31→21:07)
[2023-02-05 05:10] LABS: BASOPHILS # (AUTO) 0.1 X10^3/uL (0.0-0.1); BASOPHILS % (AUTO) 0.3 % (0.2-1.0); EOSINOPHILS % (AUTO) 0.2 % (0.9-2.9); HEMATOCRIT 25.5 % (36.0-47.0); HEMOGLOBIN 8.6 g/dL (12.0-16.0); LYMPHOCYTES # (AUTO) 1.5 X10^3/uL (1.3-2.9); LYMPHOCYTES % (AUTO) 9.1 % (21.0-51.0); MEAN CORPUSCULAR HEMOGLOBIN 28.8 pg (27.0-34.0); MEAN CORPUSCULAR HGB CONC 33.6 g/dL (33.0-35.0); MEAN CORPUSCULAR VOLUME 85.9 fL (80.0-100.0); MEAN PLATELET VOLUME 10.5 fL (7.4-11.0); MONOCYTES # (AUTO) 1.8 x10^3/uL (0.3-0.8); MONOCYTES % (AUTO) 10.8 % (0.0-13.0); NEUTROPHILS # (AUTO) 13.3 x10^3/uL (2.2-4.8); NEUTROPHILS % (AUTO) 79.6 % (42.0-75.0); PLATELET COUNT 125 X10^3/uL (150.0-450.0); RED BLOOD COUNT 2.97 X10^6/uL (3.5-5.4); RED CELL DISTRIBUTION WIDTH 14.7 % (11.6-16.5); WHITE BLOOD COUNT 16.7 X10^3/uL (3.6-10.0)
[2023-02-05 05:23] LABS: ALBUMIN 1.8 g/dL (3.4-5.0); CALCIUM 7.5 mg/dL (8.5-10.1); CARBON DIOXIDE 25.4 mmol/L (21-32); COR CA(FOR HYPOALB) 9.3 mg/dL (8.5-10.1); CREATININE 1.34 mg/dL (0.55-1.02); MAGNESIUM 2.3 mg/dL (2.0-2.9); POTASSIUM 3.4 mmol/L (3.5-5.1); TOTAL PROTEIN 6.1 g/dL (6.4-8.2)
[2023-02-05] MEDS: NORCO 5/325 MG TAB PO PRN ×2 (08:00→21:27)
[2023-02-05] MEDS ORDERED: NS 100 ML IV 100 ML ONE (08:57)
[2023-02-05] MEDS: AMARYL TAB 4 MG PO SCH ×2 (09:20→20:33)
[2023-02-05] MEDS: INVanz INJ 1 GRAM VIAL 1 G in NS 100 ML IV 100 ML IV SCH (09:20)
[2023-02-05] MEDS: VSL#3 PO SCH (09:21)
[2023-02-05] MEDS: APRESOLINE TAB 25 MG PO SCH (09:21)
[2023-02-05] MEDS: NS 1,000 ML IV 1,000 ML IV SCH ×2 (09:25→22:25)
[2023-02-05] MEDS: MYCOLOG-II CREAM TOP SCH ×2 (10:14→20:34)
--- NOTE | 2023-02-05 12:45 | PCM.PROG ---
Progress Note Progress Note for Day of Date of Exam: 02/05/23 Subjective Subjective: Tuesday, 05 Feb 2023 Patient is sitting up in the chair beside the bed this morning. She is is in good spirits and reports she is feeling better. I do see that her white blood cell count has gone up since yesterday. I do see where her blood sugar has been in the 200-300 range. I will add Levemir 10 units twice daily for improved glycemic control. We will also continue her on sliding scale regular insulin per protocol. I see that she also has worsening anemia since admission. We will check iron panel along with vitamin B12 and folate levels. I will also check a Hemoccult to see if she is losing blood through the GI tract. If she is not on Protonix I will start her on that today for GI protection. Patient also reports this morning that she is having hard time sleeping at night as she keeps moving her legs around because she cannot get comfortable. She also complains of burning and stinging in painful legs and feet as well. She reports previously she was on gabapentin but stopped it because she did not like the way it made her feel. I discussed pregabalin whether she is interested in trying it so we will start at 75 mg twice daily. Also talked her about ropinirole for restless leg syndrome and she wants to try it. We will give her 1 mg of ropinirole tonight at bedtime. IS CURRENTLY INPATIENT STATUS FOR TREATMENT OF SEPSIS DUE TO UTI, ACUTE RENAL INSUFFICIENCY, DEHYDRATION, INTRACTABLE NAUSEA AND VOMITING, AND SHORTNESS OF BREATH. SHE HAS A PMH OF HTN AND DM II. TODAY, SHE IS ALERT AND ORIENTED, SITTING UP IN CHAIR ON MORNING ROUNDS. SHE CONTINUES TO COMPLAIN OF SUPRAPUBIC PAIN AND NAUSEA THIS MORNING. SHE DOES REPORT SLIGHT IMPROVEMENT IN SYMPTOMS TODAY. ON EXAMINATION, HEART IS REGULAR IN RATE AND RHYTHM. BILATERAL LUNGS ARE NOTED WITH DIMINISHED LUNG SOUNDS THROUGHOUT. ABDOMEN IS ROUND, SOFT, AND NOTED WITH SUPRAPUBIC TENDERNESS. GOOD MOVEMENT NOTED TO UPPER AND LOWER EXTREMITIES. TRACE EDEMA NOTED TO BILATERAL LOWER EXTREMITIES. HER VITALS THIS MORNING ARE: 97.5-93-25-100%-102/54. LABS WERE OBTAINED. WBC 12.3, RBC 3.22, HGB 9.3, HCT 27.6, PLT COUNT 94, SODIUM 129, POTASSIUM 3.3, CHLORIDE 94, BUN 39, CREATININE 1.89, GLUCOSE 233, CALCIUM 7.7, TOTAL BILI 1.40, AST 27, ALT 24, ALK PHOS 111, TOTAL PROTEIN 6.2, ALBUMIN 2.0. URINE AND BLOOD CULTURES ARE PENDING. PRELIMINARY CULTURES ARE POSITIVE FOR GROWTH OF GRAM NEGATIVE RODS. A CHEST XRAY WAS OBTAINED AND REVEALED: trachea is midline. The cardiac silhouette is enlarge d with a tortuous thoracic aorta. Stable left-sided central venous catheter is observed. The lungs are clear without focal infiltrate or effusion. The bony thorax is unremarkable. SHE IS CURRENTLY RECEIVING NORMAL SALINE AT 75 ML/HR, CEFTRIAXONE 1G IV DAILY, OTBS ACHS, HUMULIN R SLIDING SCALE, ZOFRAN 4MG IV Q6H PRN, XOPENEX NEBS QID PRN, LOVENOX 30MG SC DAILY, TYLENOL 1G PO Q6H PRN, LOMOTIL BID PRN, AMARYL 4MG PO BID, APRESOLINE 50MG DAILY. WE WILL CONTINUE WITH CURRENT PLAN OF CARE TODAY. OTHERWISE, WE PLAN TO FOLLOW-UP WITH AM LABS AND CONTINUE TO MONITOR. TIME SPENT ON CLINICAL ASSESSMENT, REVIEWING LABS AND IMAGING, DECISION MAKING, AND DOCUMENTATION GREATER THAN 45 MINUTES. Past Medical Family Social History Past Med/Fam/Surg Hx: No changes since H&P Allergies: Allergies No Known Allergies Allergy (Verified 02/01/23 13:51) Review of Systems ROS: No change since H&P Vital Signs and I&O's Vital Signs: Temperature 97.6 F Pulse Rate [Left Radial] 94 Pulse Rate 92 Respiratory Rate 20 Blood Pressure [Left Arm] 126/59 Blood Pressure 139/63 O2 Sat by Pulse Oximetry 98 Intake and Output: Intake & Output 02/03/23 02/04/23 02/05/23 02/06/23 11:59 11:59 11:59 11:59 Intake Total 2987 / 2987 4706 / 4706 2690 / 2690 Balance 2987 / 2987 4706 / 4706 2690 / 2690 Physical Exam Oriented: Normal Eyes: Normal Ear: Normal Nose: Normal Throat: Normal Respiratory: Generalized and Diminished Cardiovascular: Edema (TRACE EDEMA TO BILATERAL LOWER EXTREMITIES ) : Normal Auscultation: Bowel Sounds: Normal Tenderness: Suprapubic Skin: Normal Musculoskeletal: Normal Psychiatric: Normal Mood Description: Calm Affect: Normal Speech Pattern: Clear and Appropriate Laboratory and Diagnostics Result Diagrams: 02/05/23 04:20 02/05/23 04:20 Labs: 02/01/23 22:36 Blood Blood Culture - Final Escherichia Coli 02/01/23 22:30 Blood Blood Culture - Final Escherichia Coli 02/01/23 10:24 Urine,Clean Catch Urine Culture - Final Escherichia Coli Laboratory WBC 16.7 X10^3/uL (3.6-10.0) H 02/05/23 04:20 RBC 2.97 X10^6/uL (3.5-5.4) L 02/05/23 04:20 Hgb 8.6 g/dL (12.0-16.0) L 02/05/23 04:20 Hct 25.5 % (36.0-47.0) L 02/05/23 04:20 MCV 85.9 fL (80.0-100.0) 02/05/23 04:20 MCH 28.8 pg (27.0-34.0) 02/05/23 04:20 MCHC 33.6 g/dL (33.0-35.0) 02/05/23 04:20 RDW 14.7 % (11.6-16.5) 02/05/23 04:20 Plt Count 125 X10^3/uL (150.0-450.0) L 02/05/23 04:20 Plt Count Comment Decreased (ADEQUATE) A 02/03/23 04:13 MPV 10.5 fL (7.4-11.0) 02/05/23 04:20 Neut % (Auto) 79.6 % (42.0-75.0) H 02/05/23 04:20 Lymph % (Auto) 9.1 % (21.0-51.0) L 02/05/23 04:20 [place] % (Auto) 10.8 % (0.0-13.0) 02/05/23 04:20 Eos % (Auto) 0.2 % (0.9-2.9) L 02/05/23 04:20 Baso % (Auto) 0.3 % (0.2-1.0) 02/05/23 04:20 Neut # (Auto) 13.3 x10^3/uL (2.2-4.8) H 02/05/23 04:20 Lymph # (Auto) 1.5 X10^3/uL (1.3-2.9) 02/05/23 04:20 [place] # (Auto) 1.8 x10^3/uL (0.3-0.8) H 02/05/23 04:20 Eos # (Auto) 0.0 x10^3/uL (0.0-0.2) 02/05/23 04:20 Baso # (Auto) 0.1 X10^3/uL (0.0-0.1) 02/05/23 04:20 Absolute Nucleated RBC 0.0 /100WBC 02/05/23 04:20 Total Counted 100 02/03/23 04:13 Neutrophils % (Manual) 92 % (39-76) H 02/03/23 04:13 Band Neutrophils % 7 % (0-10) 02/02/23 04:01 Lymphocytes % (Manual) 7 % (13-43) L 02/03/23 04:13 Monocytes % (Manual) 1 % (4-9) L 02/03/23 04:13 Plt Morphology Comment Normal (NORMAL) 02/03/23 04:13 RBC Morphology Normal (NORMAL) 02/03/23 04:13 Sodium 129 mmol/L (136-145) L 02/05/23 04:20 Corrected Sodium 134 mmol/L (136-145) L 02/05/23 04:20 Potassium 3.4 mmol/L (3.5-5.1) L 02/05/23 04:20 Chloride 96 mmol/L (98-107) L 02/05/23 04:20 Carbon Dioxide 25.4 mmol/L (21-32) 02/05/23 04:20 BUN 33 mg/dL (7-18) H 02/05/23 04:20 Creatinine 1.34 mg/dL (0.55-1.02) H 02/05/23 04:20 Est GFR (MDRD) Af Amer 51 (>60) L 02/05/23 04:20 Est GFR (MDRD) Non-Af 42 (>60) L 02/05/23 04:20 Glucose 326 mg/dL (65-99) H 02/05/23 04:20 POC Glucose (mg/dL) 336 mg/dL (65-99) H 02/05/23 11:50 Calcium 7.5 mg/dL (8.5-10.1) L 02/05/23 04:20 Corrected Calcium 9.3 mg/dL (8.5-10.1) 02/05/23 04:20 Magnesium 2.3 mg/dL (2.0-2.9) 02/05/23 04:20 Total Bilirubin 0.90 mg/dL (0.2-1.0) 02/05/23 04:20 AST 19 Units/L (15-37) 02/05/23 04:20 ALT 24 Units/L (12-78) 02/05/23 04:20 Alkaline Phosphatase 102 Units/L (46-116) 02/05/23 04:20 B-Natriuretic Peptide 219 pg/mL (0-79) H 02/01/23 08:53 Total Protein 6.1 g/dL (6.4-8.2) L 02/05/23 04:20 Albumin 1.8 g/dL (3.4-5.0) L 02/05/23 04:20 Globulin 4.3 g/dL (2.5-4.5) 02/05/23 04:20 Albumin/Globulin Ratio 0.4 Ratio (1.1-2.1) L 02/05/23 04:20 Lipase 31 Units/L (73-393) L 02/01/23 08:53 Specimen Type Clean catch urine 02/01/23 10:26 Urine Color Yellow (YELLOW) 02/01/23 10:26 Urine Appearance Cloudy (CLEAR) 02/01/23 10:26 Urine pH 5.0 (5.0 - 8.0) 02/01/23 10:26 Ur Specific [place] 1.025 (1.000-1.030) 02/01/23 10:26 Urine Protein 3+ (NEGATIVE) 02/01/23 10:26 Urine Glucose (UA) 2+ (NEGATIVE) 02/01/23 10:26 Urine Ketones 2+ (NEGATIVE) 02/01/23 10:26 Urine Blood 4+ (NEGATIVE) 02/01/23 10:26 Urine Nitrite Negative (NEGATIVE) 02/01/23 10:26 Urine Bilirubin Negative (NEGATIVE) 02/01/23 10:26 Urine Urobilinogen 1+ (NORMAL) 02/01/23 10:26 Ur Leukocyte Esterase 3+ (NEGATIVE) 02/01/23 10:26 SARS-CoV-2 (PCR) Negative (NEGATIVE) 02/01/23 08:14 Influenza Type A (PCR) Negative (NEGATIVE) 02/01/23 08:14 Influenza Type B (PCR) Negative (NEGATIVE) 02/01/23 08:14 RSV (PCR) Negative (NEGATIVE) 02/01/23 08:14 Plan (1) Urinary tract infection: Status: Acute Qualifiers: Urinary tract infection type: acute cystitis Hematuria presence: with hematuria Qualified Code(s): N30.01 - Acute cystitis with hematuria Narrative Support Text: Patient grew out E. Dipika coli which is sensitive to Invanz. Plan: NORMAL SALINE AT 75 ML/HR, CEFTRIAXONE 1G IV DAILY, OTBS ACHS, HUMULIN R SLIDING SCALE, ZOFRAN 4MG IV Q6H PRN, XOPENEX NEBS QID PRN, LOVENOX 30MG SC DAILY, TYLENOL 1G PO Q6H PRN, LOMOTIL BID PRN, AMARYL 4MG PO BID, APRESOLINE 50MG DAILY. (2) Sepsis: Status: Acute Qualifiers: Sepsis type: Escherichia coli Severe sepsis acute organ dysfunction type: acute renal failure Severe sepsis shock status: without septic shock Plan: Patient has 2 positive blood culture secondary to each week E. coli. Both are sensitive to Invanz. Continue Invanz daily. (3) Acute renal insufficiency: Status: Acute Narrative Support Text: Acute renal insufficiency is improving. Plan: Continue slow IV hydration. (4) Dehydration: Status: Acute Narrative Support Text: Improving since admission. Plan: Dehydration is overall improving. Continue slow IV hydration. (5) Intractable nausea and vomiting: Status: Acute Plan: Continue as needed Zofran. (6) Shortness of breath: Status: Acute Plan: Continue nebs. (7) Hypertension: Status: Chronic Qualifiers: Hypertension type: primary hypertension Qualified Code(s): I10 - Essential (primary) hypertension Plan: Continue antihypertensive medications. 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 (9) Hypokalemia: Status: Acute Plan: Potassium/magnesium replacement protocol. (10) Anemia: Status: Acute Plan: Check iron level, transferrin, ferritin, reticulocyte count, Hemoccult, vitamin B12 and folate level. I will also start the patient on Protonix 40 mg IV daily for GI protection. (11) Diabetic peripheral neuropathy associated with type 2 diabetes mellitus: Status: Acute Plan: Start Lyrica 75 mg twice daily. (12) Restless leg syndrome: Status: Acute Plan: Start ropinirole 1 mg at bedtime.
[2023-02-05] MEDS: NovoLIN R (or HumuLIN R) SUBCUT PRN ×2 (12:48→17:33)
[2023-02-05 12:58] LABS: RETICULOCYTE % 0.53 % (0.8-2.2)
[2023-02-05] MEDS: PROTONIX INJ 40 MG VIAL IVP SCH (13:32)
[2023-02-05] MEDS: LEVEMIR SC SCH ×2 (13:33→20:35)
[2023-02-05] MEDS: SNACK - Diabetic Appropriate PO SCH (19:04)
[2023-02-05] MEDS: COREG TAB 12.5 MG PO SCH (20:34)
[2023-02-05] MEDS: LYRICA CAP 75 mg PO SCH (20:35)
[2023-02-05] MEDS ORDERED: REQUIP PO SCH (21:00)
[2023-02-06 05:25] LABS: BASOPHILS % (AUTO) 0.1 % (0.2-1.0); EOSINOPHILS # (AUTO) 0.1 x10^3/uL (0.0-0.2); EOSINOPHILS % (AUTO) 0.4 % (0.9-2.9); HEMATOCRIT 23.2 % (36.0-47.0); HEMOGLOBIN 7.8 g/dL (12.0-16.0); LYMPHOCYTES # (AUTO) 1.8 X10^3/uL (1.3-2.9); LYMPHOCYTES % (AUTO) 9.4 % (21.0-51.0); MEAN CORPUSCULAR HEMOGLOBIN 28.8 pg (27.0-34.0); MEAN CORPUSCULAR HGB CONC 33.7 g/dL (33.0-35.0); MEAN CORPUSCULAR VOLUME 85.5 fL (80.0-100.0); MEAN PLATELET VOLUME 9.8 fL (7.4-11.0); MONOCYTES # (AUTO) 2.1 x10^3/uL (0.3-0.8); MONOCYTES % (AUTO) 10.9 % (0.0-13.0); NEUTROPHILS # (AUTO) 15.4 x10^3/uL (2.2-4.8); NEUTROPHILS % (AUTO) 79.2 % (42.0-75.0); PLATELET COUNT 160 X10^3/uL (150.0-450.0); RED BLOOD COUNT 2.71 X10^6/uL (3.5-5.4); RED CELL DISTRIBUTION WIDTH 14.8 % (11.6-16.5); WHITE BLOOD COUNT 19.4 X10^3/uL (3.6-10.0)
[2023-02-06 05:44] LABS: ALANINE AMINOTRANSFERASE 25 Units/L (12-78); ALBUMIN 1.7 g/dL (3.4-5.0); ALKALINE PHOSPHATASE 101 Units/L (46-116); ASPARTATE AMINO TRANSFERASE 22 Units/L (15-37); BLOOD UREA NITROGEN 25 mg/dL (7-18); CALCIUM 7.9 mg/dL (8.5-10.1); CARBON DIOXIDE 26.5 mmol/L (21-32); CHLORIDE 99 mmol/L (98-107); COR CA(FOR HYPOALB) 9.7 mg/dL (8.5-10.1); COR NA(FOR HYPERGLY) 134 mmol/L (136-145); CREATININE 1.08 mg/dL (0.55-1.02); GLUCOSE 164 mg/dL (65-99); MAGNESIUM 2.2 mg/dL (2.0-2.9); POTASSIUM 3.9 mmol/L (3.5-5.1); SODIUM 132 mmol/L (136-145); TOTAL PROTEIN 5.8 g/dL (6.4-8.2); eGFR NON BLACK RACES 54 (>60)
[2023-02-06] MEDS: INVanz INJ 1 GRAM VIAL 1 G in NS 100 ML IV 100 ML IV SCH (08:45)
[2023-02-06] MEDS: LYRICA CAP 75 mg PO SCH ×2 (08:45→20:31)
[2023-02-06] MEDS: VSL#3 PO SCH (08:46)
[2023-02-06] MEDS: APRESOLINE TAB 25 MG PO SCH (08:46)
[2023-02-06] MEDS: PROTONIX INJ 40 MG VIAL IVP SCH ×2 (08:46→20:32)
[2023-02-06] MEDS: AMARYL TAB 4 MG PO SCH ×2 (08:46→20:31)
[2023-02-06] MEDS: COREG TAB 12.5 MG PO SCH ×2 (08:47→20:31)
[2023-02-06] MEDS: LEVEMIR SC SCH ×2 (09:03→20:32)
[2023-02-06] MEDS: COLACE CAP 100 MG PO PRN ×2 (09:04→20:32)
[2023-02-06] MEDS: MYCOLOG-II CREAM TOP SCH ×2 (09:12→20:33)
--- NOTE | 2023-02-06 13:01 | PCM.PROG ---
Progress Note Progress Note for Day of Date of Exam: 02/06/23 Subjective Subjective: Tuesday, 06 Feb 2023 Patient is sitting up beside the bed this morning. She reports her legs are feeling much better since starting Lyrica yesterday. She reports the ropinirole helped substantially with her restless leg syndrome last night. She did move her legs around some last night she reports so I will go ahead and increase her ropinirole to 2 mg tonight at bedtime. Brain natriuretic peptide that was checked yesterday was down in the 200s so I will go ahead and repeat it today and tomorrow morning. Overall the patient is improving her creatinine is again improved today compared to the previous days. Continue slow IV hydration and IV Invanz. I will change her Protonix from 40 mg IV daily to twice daily because of her continuing decline in hemoglobin. I also see that her folate level is low so I will start her on p.o. replacement folate. Patient blood pressure is much improved since starting Coreg 12.5 mg twice daily yesterday. Also blood sugars have improved and are running in the range between 100-250 since starting Levemir 10 units twice daily. 05 Feb 2023 Patient is sitting up in the chair beside the bed this morning. She is is in good spirits and reports she is feeling better. I do see that her white blood cell count has gone up since yesterday. I do see where her blood sugar has been in the 200-300 range. I will add Levemir 10 units twice daily for improved glycemic control. We will also continue her on sliding scale regular insulin p er protocol. I see that she also has worsening anemia since admission. We will check iron panel along with vitamin B12 and folate levels. I will also check a Hemoccult to see if she is losing blood through the GI tract. If she is not on Protonix I will start her on that today for GI protection. Patient also reports this morning that she is having hard time sleeping at night as she keeps moving her legs around because she cannot get comfortable. She also complains of burning and stinging in painful legs and feet as well. She reports previously she was on gabapentin but stopped it because she did not like the way it made her feel. I discussed pregabalin whether she is interested in trying it so we will start at 75 mg twice daily. Also talked her about ropinirole for restless leg syndrome and she wants to try it. We will give her 1 mg of ropinirole tonight at bedtime. IS CURRENTLY INPATIENT STATUS FOR TREATMENT OF SEPSIS DUE TO UTI, ACUTE RENAL INSUFFICIENCY, DEHYDRATION, INTRACTABLE NAUSEA AND VOMITING, AND SHORTNESS OF BREATH. SHE HAS A PMH OF HTN AND DM II. TODAY, SHE IS ALERT AND ORIENTED, SITTING UP IN CHAIR ON MORNING ROUNDS. SHE CONTINUES TO COMPLAIN OF SUPRAPUBIC PAIN AND NAUSEA THIS MORNING. SHE DOES REPORT SLIGHT IMPROVEMENT IN SYMPTOMS TODAY. ON EXAMINATION, HEART IS REGULAR IN RATE AND RHYTHM. BILATERAL LUNGS ARE NOTED WITH DIMINISHED LUNG SOUNDS THROUGHOUT. ABDOMEN IS ROUND, SOFT, AND NOTED WITH SUPRAPUBIC TENDERNESS. GOOD MOVEMENT NOTED TO UPPER AND LOWER EXTREMITIES. TRACE EDEMA NOTED TO BILATERAL LOWER EXTREMITIES. HER VITALS THIS MORNING ARE: 97.5-93-25-100%-102/54. LABS WERE OBTAINED. WBC 12.3, RBC 3.22, HGB 9.3, HCT 27.6, PLT COUNT 94, SODIUM 129, POTASSIUM 3.3, CHLORIDE 94, BUN 39, CREATININE 1.89, GLUCOSE 233, CALCIUM 7.7, TOTAL BILI 1.40, AST 27, ALT 24, ALK PHOS 111, TOTAL PROTEIN 6.2, ALBUMIN 2.0. URINE AND BLOOD CULTURES ARE PENDING. PRELIMINARY CULTURES ARE POSITIVE FOR GROWTH OF GRAM NEGATIVE RODS. A CHEST XRAY WAS OBTAINED AND REVEALED: trachea is midline. The cardiac silhouette is enlarged with a tortuous thoracic aorta. Stable left-sided central venous catheter is observed. The lungs are clear without focal infiltrate or effusion. The bony thorax is unremarkable. SHE IS CURRENTLY RECEIVING NORMAL SALINE AT 75 ML/HR, CEFTRIAXONE 1G IV DAILY, OTBS ACHS, HUMULIN R SLIDING SCALE, ZOFRAN 4MG IV Q6H PRN, XOPENEX NEBS QID PRN, LOVENOX 30MG SC DAILY, TYLENOL 1G PO Q6H PRN, LOMOTIL BID PRN, AMARYL 4MG PO BID, APRESOLINE 50MG DAILY. WE WILL CONTINUE WITH CURRENT PLAN OF CARE TODAY. OTHERWISE, WE PLAN TO FOLLOW-UP WITH AM LABS AND CONTINUE TO MONITOR. TIME SPENT ON CLINICAL ASSESSMENT, REVIEWING LABS AND IMAGING, DECISION MAKING, AND DOCUMENTATION GREATER THAN 45 MINUTES. Past Medical Family Social History Past Med/Fam/Surg Hx: No changes since H&P Allergies: Allergies No Known Allergies Allergy (Verified 02/01/23 13:51) Review of Systems ROS: No change since H&P Vital Signs and I&O's Vital Signs: Temperature 98.8 F Pulse Rate [Left Radial] 94 Pulse Rate 75 Respiratory Rate 22 Blood Pressure [Left Arm] 126/59 Blood Pressure 142/63 O2 Sat by Pulse Oximetry 100 Intake and Output: Intake & Output 02/04/23 02/05/23 02/06/23 02/07/23 11:59 11:59 11:59 11:59 Intake Total 4706 / 4706 2690 / 2690 2109 Balance 4706 / 4706 2690 / 2690 2109 Physical Exam Oriented: Normal Eyes: Normal Ear: Normal Nose: Normal Throat: Normal Respiratory: Generalized and Diminished Cardiovascular: Edema (TRACE EDEMA TO BILATERAL LOWER EXTREMITIES ) : Normal Auscultation: Bowel Sounds: Normal Tenderness: Suprapubic Skin: Normal Musculoskeletal: Normal Psychiatric: Normal Mood Description: Calm Affect: Normal Speech Pattern: Clear and Appropriate Laboratory and Diagnostics Result Diagrams: 02/06/23 04:15 02/06/23 04:15 Labs: 02/01/23 22:36 Blood Blood Culture - Final Escherichia Coli 02/01/23 22:30 Blood Blood Culture - Final Escherichia Coli 02/01/23 10:24 Urine,Clean Catch Urine Culture - Final Escherichia Coli Laboratory WBC 19.4 X10^3/uL (3.6-10.0) H 02/06/23 04:15 RBC 2.71 X10^6/uL (3.5-5.4) L 02/06/23 04:15 Hgb 7.8 g/dL (12.0-16.0) L 02/06/23 04:15 Hct 23.2 % (36.0-47.0) L 02/06/23 04:15 MCV 85.5 fL (80.0-100.0) 02/06/23 04:15 MCH 28.8 pg (27.0-34.0) 02/06/23 04:15 MCHC 33.7 g/dL (33.0-35.0) 02/06/23 04:15 RDW 14.8 % (11.6-16.5) 02/06/23 04:15 Plt Count 160 X10^3/uL (150.0-450.0) 02/06/23 04:15 Plt Count Comment Decreased (ADEQUATE) A 02/03/23 04:13 MPV 9.8 fL (7.4-11.0) 02/06/23 04:15 Neut % (Auto) 79.2 % (42.0-75.0) H 02/06/23 04:15 Lymph % (Auto) 9.4 % (21.0-51.0) L 02/06/23 04:15 [place] % (Auto) 10.9 % (0.0-13.0) 02/06/23 04:15 Eos % (Auto) 0.4 % (0.9-2.9) L 02/06/23 04:15 Baso % (Auto) 0.1 % (0.2-1.0) L 02/06/23 04:15 Neut # (Auto) 15.4 x10^3/uL (2.2-4.8) H 02/06/23 04:15 Lymph # (Auto) 1.8 X10^3/uL (1.3-2.9) 02/06/23 04:15 [place] # (Auto) 2.1 x10^3/uL (0.3-0.8) H 02/06/23 04:15 Eos # (Auto) 0.1 x10^3/uL (0.0-0.2) 02/06/23 04:15 Baso # (Auto) 0.0 X10^3/uL (0.0-0.1) 02/06/23 04:15 Absolute Nucleated RBC 0.0 /100WBC 02/06/23 04:15 Total Counted 100 02/03/23 04:13 Neutrophils % (Manual) 92 % (39-76) H 02/03/23 04:13 Band Neutrophils % 7 % (0-10) 02/02/23 04:01 Lymphocytes % (Manual) 7 % (13-43) L 02/03/23 04:13 Monocytes % (Manual) 1 % (4-9) L 02/03/23 04:13 Plt Morphology Comment Normal (NORMAL) 02/03/23 04:13 RBC Morphology Normal (NORMAL) 02/03/23 04:13 Absolute Retic 0.0160 10^6/uL 02/05/23 04:20 Percent Retic 0.53 % (0.8-2.2) L 02/05/23 04:20 Sodium 132 mmol/L (136-145) L 02/06/23 04:15 Corrected Sodium 134 mmol/L (136-145) L 02/06/23 04:15 Potassium 3.9 mmol/L (3.5-5.1) 02/06/23 04:15 Chloride 99 mmol/L (98-107) 02/06/23 04:15 Carbon Dioxide 26.5 mmol/L (21-32) 02/06/23 04:15 BUN 25 mg/dL (7-18) H 02/06/23 04:15 Creatinine 1.08 mg/dL (0.55-1.02) H 02/06/23 04:15 Est GFR (MDRD) Af Amer > 60 (>60) 02/06/23 04:15 Est GFR (MDRD) Non-Af 54 (>60) L 02/06/23 04:15 Glucose 164 mg/dL (65-99) H 02/06/23 04:15 POC Glucose (mg/dL) 112 mg/dL (65-99) H 02/06/23 11:34 Calcium 7.9 mg/dL (8.5-10.1) L 02/06/23 04:15 Corrected Calcium 9.7 mg/dL (8.5-10.1) 02/06/23 04:15 Magnesium 2.2 mg/dL (2.0-2.9) 02/06/23 04:15 Iron 14 ug/dL (50-175) L 02/05/23 04:20 Transferrin 163 mg/dL (202-364) L 02/05/23 04:20 Ferritin 848 ng/mL (8-252) H 02/05/23 04:20 Total Bilirubin 0.70 mg/dL (0.2-1.0) 02/06/23 04:15 AST 22 Units/L (15-37) 02/06/23 04:15 ALT 25 Units/L (12-78) 02/06/23 04:15 Alkaline Phosphatase 101 Units/L (46-116) 02/06/23 04:15 B-Natriuretic Peptide 219 pg/mL (0-79) H 02/01/23 08:53 Total Protein 5.8 g/dL (6.4-8.2) L 02/06/23 04:15 Albumin 1.7 g/dL (3.4-5.0) L 02/06/23 04:15 Globulin 4.1 g/dL (2.5-4.5) 02/06/23 04:15 Albumin/Globulin Ratio 0.4 Ratio (1.1-2.1) L 02/06/23 04:15 Lipase 31 Units/L (73-393) L 02/01/23 08:53 Vitamin B12 1630 pg/mL (193-986) H 02/05/23 04:20 Folate 5.5 ng/mL (>8.6) L 02/05/23 04:20 Specimen Type Clean catch urine 02/01/23 10:26 Urine Color Yellow (YELLOW) 02/01/23 10:26 Urine Appearance Cloudy (CLEAR) 02/01/23 10:26 Urine pH 5.0 (5.0 - 8.0) 02/01/23 10:26 Ur Specific [place] 1.025 (1.000-1.030) 02/01/23 10:26 Urine Protein 3+ (NEGATIVE) 02/01/23 10:26 Urine Glucose (UA) 2+ (NEGATIVE) 02/01/23 10:26 Urine Ketones 2+ (NEGATIVE) 02/01/23 10:26 Urine Blood 4+ (NEGATIVE) 02/01/23 10:26 Urine Nitrite Negative (NEGATIVE) 02/01/23 10:26 Urine Bilirubin Negative (NEGATIVE) 02/01/23 10:26 Urine Urobilinogen 1+ (NORMAL) 02/01/23 10:26 Ur Leukocyte Esterase 3+ (NEGATIVE) 02/01/23 10:26 SARS-CoV-2 (PCR) Negative (NEGATIVE) 02/01/23 08:14 Influenza Type A (PCR) Negative (NEGATIVE) 02/01/23 08:14 Influenza Type B (PCR) Negative (NEGATIVE) 02/01/23 08:14 RSV (PCR) Negative (NEGATIVE) 02/01/23 08:14 Plan (1) Urinary tract infection: Status: Acute Qualifiers: Urinary tract infection type: acute cystitis Hematuria presence: with hematuria Qualified Code(s): N30.01 - Acute cystitis with hematuria Plan: NORMAL SALINE AT 75 ML/HR, CEFTRIAXONE 1G IV DAILY, OTBS ACHS, HUMULIN R SLIDING SCALE, ZOFRAN 4MG IV Q6H PRN, XOPENEX NEBS QID PRN, LOVENOX 30MG SC DAILY, TYLENOL 1G PO Q6H PRN, LOMOTIL BID PRN, AMARYL 4MG PO BID, APRESOLINE 50MG DAILY. (2) Sepsis: Status: Acute Qualifiers: Sepsis type: Escherichia coli Severe sepsis acute organ dysfunction type: acute renal failure Severe sepsis shock status: without septic shock Plan: Patient has 2 positive blood culture secondary to each week E. coli. Both are sensitive to Invanz. Continue Invanz daily. (3) Acute renal insufficiency: Status: Acute Plan: Continue slow IV hydration. (4) Dehydration: Status: Acute Plan: Dehydration is overall improving. Continue slow IV hydration. (5) Intractable nausea and vomiting: Status: Acute Plan: Continue as needed Zofran. (6) Shortness of breath: Status: Acute Plan: Continue nebs. (7) Hypertension: Status: Chronic Qualifiers: Hypertension type: primary hypertension Qualified Code(s): I10 - Essential (primary) hypertension Plan: Coreg 12.5 mg twice daily was added yesterday we will continue that at this time. Blood pressure is improved overall. (8) Diabetes mellitus: Status: Chronic Qualifiers: Diabetes mellitus type: type 2 Diabetes mellitus care home insulin use: with care home use Diabetes mellitus complication status: with hyperglycemia Qualified Code(s): E11.65 - Type 2 diabetes mellitus with hyperglycemia; Z79.4 - senior living (current) use of insulin Plan: I will add Levemir 10 units subcutaneously every 12 hours for improved glycemic control. (9) Hypokalemia: Status: Acute Plan: Potassium/magnesium replacement protocol. (10) Anemia: Status: Acute Plan: I am starting the patient on folate 1 mg daily. (11) Diabetic peripheral neuropathy associated with type 2 diabetes mellitus: Status: Acute Narrative Support Text: Much improved since starting Lyrica yesterday. Plan: Start Lyrica 75 mg twice daily. (12) Restless leg syndrome: Status: Acute Plan: Increase ropinirole to 2 mg at bedtime for better control. (13) Folate deficiency: Status: Acute Plan: Start folate 1 mg p.o. daily.
[2023-02-06] MEDS: FOLIC ACID TAB 1 MG PO SCH (13:44)
[2023-02-06] MEDS: NS 1,000 ML IV 1,000 ML IV SCH (13:45)
[2023-02-06] MEDS: NovoLIN R (or HumuLIN R) SUBCUT PRN (16:43)
[2023-02-06] MEDS: XOPENEX 1.25 MG/3 ML NEBULE NEB PRN (16:49)
[2023-02-06] MEDS ORDERED: LASIX ONE (17:06)
[2023-02-06] MEDS: LASIX IVP SCH ×2 (17:21→18:34)
[2023-02-06] MEDS: SNACK - Diabetic Appropriate PO SCH (19:26)
[2023-02-06] MEDS: ULTRAM PO PRN (20:31)
[2023-02-06] MEDS: REQUIP PO SCH (20:31)
[2023-02-07] MEDS: NS 1,000 ML IV 1,000 ML IV SCH ×2 (03:00→17:08)
[2023-02-07 05:37] LABS: BASOPHILS % (AUTO) 0.3 % (0.2-1.0); EOSINOPHILS # (AUTO) 0.1 x10^3/uL (0.0-0.2); EOSINOPHILS % (AUTO) 0.5 % (0.9-2.9); HEMATOCRIT 22.6 % (36.0-47.0); HEMOGLOBIN 7.5 g/dL (12.0-16.0); LYMPHOCYTES # (AUTO) 1.8 X10^3/uL (1.3-2.9); LYMPHOCYTES % (AUTO) 12.7 % (21.0-51.0); MEAN CORPUSCULAR HEMOGLOBIN 28.7 pg (27.0-34.0); MEAN CORPUSCULAR HGB CONC 33.4 g/dL (33.0-35.0); MEAN CORPUSCULAR VOLUME 86.1 fL (80.0-100.0); MEAN PLATELET VOLUME 9.6 fL (7.4-11.0); MONOCYTES # (AUTO) 1.3 x10^3/uL (0.3-0.8); MONOCYTES % (AUTO) 8.7 % (0.0-13.0); NEUTROPHILS # (AUTO) 11.2 x10^3/uL (2.2-4.8); NEUTROPHILS % (AUTO) 77.8 % (42.0-75.0); PLATELET COUNT 199 X10^3/uL (150.0-450.0); RED BLOOD COUNT 2.62 X10^6/uL (3.5-5.4); WHITE BLOOD COUNT 14.4 X10^3/uL (3.6-10.0)
[2023-02-07 05:42] LABS: ALANINE AMINOTRANSFERASE 28 Units/L (12-78); ALBUMIN 1.6 g/dL (3.4-5.0); ALKALINE PHOSPHATASE 113 Units/L (46-116); ASPARTATE AMINO TRANSFERASE 20 Units/L (15-37); BLOOD UREA NITROGEN 25 mg/dL (7-18); CARBON DIOXIDE 28.3 mmol/L (21-32); CHLORIDE 100 mmol/L (98-107); COR CA(FOR HYPOALB) 9.9 mg/dL (8.5-10.1); COR NA(FOR HYPERGLY) 137 mmol/L (136-145); GLUCOSE 232 mg/dL (65-99); POTASSIUM 3.9 mmol/L (3.5-5.1); SODIUM 134 mmol/L (136-145); TOTAL PROTEIN 5.8 g/dL (6.4-8.2); eGFR NON BLACK RACES 53 (>60)
--- NOTE | 2023-02-07 06:47 | RAD ---
HISTORYCHFSTUDYCHEST, 1 [id number] trachea is midline. The cardiac silhouette is enlarged with a tortuous thoracic aorta . Increased interstitial changes with prominent vascular markings are observed consistent with underlying CHF.. The bony thorax is unremarkable.IMPRESSIONIncreased interstitial changes with prominent vascular markings are observed consistent with underlying CHF.Electronically signed by: COLLIN CABRERA (February 07, 2023 06:46:32)
[2023-02-07] MEDS: APRESOLINE TAB 25 MG PO SCH (08:43)
[2023-02-07] MEDS: FOLIC ACID TAB 1 MG PO SCH (08:43)
[2023-02-07] MEDS: LYRICA CAP 75 mg PO SCH ×2 (08:43→21:25)
[2023-02-07] MEDS: COREG TAB 12.5 MG PO SCH ×2 (08:44→21:25)
[2023-02-07] MEDS: AMARYL TAB 4 MG PO SCH ×2 (08:44→21:25)
[2023-02-07] MEDS: COLACE CAP 100 MG PO PRN ×2 (08:44→21:25)
[2023-02-07] MEDS: VSL#3 PO SCH (08:44)
[2023-02-07] MEDS: INVanz INJ 1 GRAM VIAL 1 G in NS 100 ML IV 100 ML IV SCH (08:45)
[2023-02-07] MEDS: LASIX IVP SCH ×2 (08:45→16:30)
[2023-02-07] MEDS: PROTONIX INJ 40 MG VIAL IVP SCH ×2 (08:45→21:24)
[2023-02-07] MEDS: LEVEMIR SC SCH ×2 (08:45→21:26)
[2023-02-07] MEDS: MYCOLOG-II CREAM TOP SCH ×2 (09:05→21:26)
[2023-02-07] MEDS: XOPENEX 1.25 MG/3 ML NEBULE NEB PRN (09:37)
[2023-02-07] MEDS ORDERED: LASIX IVP ONE (10:05)
--- NOTE | 2023-02-07 11:53 | PCM.PROG ---
Progress Note - Progress Note for Day of Date of Exam: 02/04/23 - Subjective Subjective: IS CURRENTLY INPATIENT STATUS FOR TREATMENT OF SEPSIS DUE TO UTI, ACUTE RENAL INSUFFICIENCY, DEHYDRATION, INTRACTABLE NAUSEA AND VOMITING, AND SHORTNESS OF BREATH. SHE HAS A PMH OF HTN AND DM II. TODAY, SHE IS ALERT AND ORIENTED, SITTING UP IN CHAIR ON MORNING ROUNDS. SHE CONTINUES TO COMPLAIN OF SUPRAPUBIC PAIN AND NAUSEA THIS MORNING. SHE DOES REPORT SLIGHT IMPROVEMENT IN SYMPTOMS TODAY. ON EXAMINATION, HEART IS REGULAR IN RATE AND RHYTHM. BILATERAL LUNGS ARE NOTED WITH DIMINISHED LUNG SOUNDS THROUGHOUT. ABDOMEN IS ROUND, SOFT, AND NOTED WITH SUPRAPUBIC TENDERNESS. GOOD MOVEMENT NOTED TO UPPER AND LOWER EXTREMITIES. TRACE EDEMA NOTED TO BILATERAL LOWER EXTREMITIES. HER VITALS THIS MORNING ARE: 97.9-98-32-100%-147/90. LABS WERE OBTAINED. WBC 13.0, RBC 3.17, HGB 9.2, HCT 27.2, PLT COUNT 96, SODIUM 130, POTASSIUM 3.5, CHLORIDE 96, BUN 41, CREATININE 1.51, GLUCOSE 265, CALCIUM 7.9, MAGNESIUM 1.7, AST 22, ALT 25, ALK PHOS 93, TOTAL PROTEIN 6.3, ALBUMIN 1.9. BLOOD AND URINE CULTURES ARE POSITIVE FOR GROWTH OF E.COLI. SHE IS CURRENTLY RECEIVING NORMAL SALINE AT 75 ML/HR, C EFTRIAXONE 1G IV DAILY, OTBS ACHS, HUMULIN R SLIDING SCALE, ZOFRAN 4MG IV Q6H PRN, XOPENEX NEBS QID PRN, LOVENOX 30MG SC DAILY, TYLENOL 1G PO Q6H PRN, LOMOTIL BID PRN, AMARYL 4MG PO BID, APRESOLINE 50MG DAILY. WE WILL DISCONTINUE THE ROCEPHIN AND START INVANZ 1G IV DAILY TODAY. WE WILL ALSO ADD PROBIOTICS DAILY. OTHERWISE, WE WILL CONTINUE WITH CURRENT PLAN OF CARE. WE PLAN TO FOLLOW-UP WITH AM LABS AND CONTINUE TO MONITOR. TIME SPENT ON CLINICAL ASSESSMENT, REVIEWING LABS AND IMAGING, DECISION MAKING, AND DOCUMENTATION GREATER THAN 45 MINUTES. - Past Medical Family Social History Past Med/Fam/Surg Hx: No changes since H&P Allergies: Allergies No Known Allergies Allergy (Verified 02/01/23 13:51) - Review of Systems ROS: No change since H&P - Vital Signs and I&O's Vital Signs: Temperature 97.6 F Pulse Rate [Left Radial] 94 Pulse Rate 83 Respiratory Rate 31 Blood Pressure [Left Arm] 126/59 Blood Pressure 143/91 O2 Sat by Pulse Oximetry 98 Intake and Output: Intake & Output 02/04/23 02/05/23 02/06/23 02/07/23 11:59 11:59 11:59 11:59 Intake Total 4706 / 4706 2690 / 2690 2110 / 2110 1640 / 1640 Balance 4706 / 4706 2690 / 2690 2110 / 2110 1640 / 1640 - Physical Exam Oriented: Normal Eyes: Normal Ear: Normal Nose: Normal Throat: Normal Respiratory: Generalized, Diminished Cardiovascular: Edema (TRACE EDEMA TO BILATERAL LOWER EXTREMITIES) : Normal Auscultation: Bowel Sounds: Normal Palpation: Normal Tenderness: Suprapubic Skin: Normal Musculoskeletal: Normal Psychiatric: Normal Mood Description: Calm Affect: Normal Speech Pattern: Clear, Appropriate - Laboratory and Diagnostics Result Diagrams: 02/07/23 04:10 02/07/23 04:10 Labs: 02/01/23 22:36 Blood Blood Culture - Final Escherichia Coli 02/01/23 22:30 Blood Blood Culture - Final Escherichia Coli 02/01/23 10:24 Urine,Clean Catch Urine Culture - Final Escherichia Coli Laboratory WBC 14.4 X10^3/uL (3.6-10.0) H 02/07/23 04:10 RBC 2.62 X10^6/uL (3.5-5.4) L 02/07/23 04:10 Hgb 7.5 g/dL (12.0-16.0) L 02/07/23 04:10 Hct 22.6 % (36.0-47.0) L 02/07/23 04:10 MCV 86.1 fL (80.0-100.0) 02/07/23 04:10 MCH 28.7 pg (27.0-34.0) 02/07/23 04:10 MCHC 33.4 g/dL (33.0-35.0) 02/07/23 04:10 RDW 15.0 % (11.6-16.5) 02/07/23 04:10 Plt Count 199 X10^3/uL (150.0-450.0) 02/07/23 04:10 Plt Count Comment Decreased (ADEQUATE) A 02/03/23 04:13 MPV 9.6 fL (7.4-11.0) 02/07/23 04:10 Neut % (Auto) 77.8 % (42.0-75.0) H 02/07/23 04:10 Lymph % (Auto) 12.7 % (21.0-51.0) L 02/07/23 04:10 [place] % (Auto) 8.7 % (0.0-13.0) 02/07/23 04:10 Eos % (Auto) 0.5 % (0.9-2.9) L 02/07/23 04:10 Baso % (Auto) 0.3 % (0.2-1.0) 02/07/23 04:10 Neut # (Auto) 11.2 x10^3/uL (2.2-4.8) H 02/07/23 04:10 Lymph # (Auto) 1.8 X10^3/uL (1.3-2.9) 02/07/23 04:10 [place] # (Auto) 1.3 x10^3/uL (0.3-0.8) H 02/07/23 04:10 Eos # (Auto) 0.1 x10^3/uL (0.0-0.2) 02/07/23 04:10 Baso # (Auto) 0.0 X10^3/uL (0.0-0.1) 02/07/23 04:10 Absolute Nucleated RBC 0.2 /100WBC 02/07/23 04:10 Total Counted 100 02/03/23 04:13 Neutrophils % (Manual) 92 % (39-76) H 02/03/23 04:13 Band Neutrophils % 7 % (0-10) 02/02/23 04:01 Lymphocytes % (Manual) 7 % (13-43) L 02/03/23 04:13 Monocytes % (Manual) 1 % (4-9) L 02/03/23 04:13 Plt Morphology Comment Normal (NORMAL) 02/03/23 04:13 RBC Morphology Normal (NORMAL) 02/03/23 04:13 Absolute Retic 0.0160 10^6/uL 02/05/23 04:20 Percent Retic 0.53 % (0.8-2.2) L 02/05/23 04:20 Sodium 134 mmol/L (136-145) L 02/07/23 04:10 Corrected Sodium 137 mmol/L (136-145) 02/07/23 04:10 Potassium 3.9 mmol/L (3.5-5.1) 02/07/23 04:10 Chloride 100 mmol/L (98-107) 02/07/23 04:10 Carbon Dioxide 28.3 mmol/L (21-32) 02/07/23 04:10 BUN 25 mg/dL (7-18) H 02/07/23 04:10 Creatinine 1.10 mg/dL (0.55-1.02) H 02/07/23 04:10 Est GFR (MDRD) Af Amer > 60 (>60) 02/07/23 04:10 Est GFR (MDRD) Non-Af 53 (>60) L 02/07/23 04:10 Glucose 232 mg/dL (65-99) H 02/07/23 04:10 POC Glucose (mg/dL) 220 mg/dL (65-99) H 02/07/23 05:49 Calcium 8.0 mg/dL (8.5-10.1) L 02/07/23 04:10 Corrected Calcium 9.9 mg/dL (8.5-10.1) 02/07/23 04:10 Magnesium 2.2 mg/dL (2.0-2.9) 02/06/23 04:15 Iron 14 ug/dL (50-175) L 02/05/23 04:20 Transferrin 163 mg/dL (202-364) L 02/05/23 04:20 Ferritin 848 ng/mL (8-252) H 02/05/23 04:20 Total Bilirubin 0.60 mg/dL (0.2-1.0) 02/07/23 04:10 AST 20 Units/L (15-37) 02/07/23 04:10 ALT 28 Units/L (12-78) 02/07/23 04:10 Alkaline Phosphatase 113 Units/L (46-116) 02/07/23 04:10 B-Natriuretic Peptide 187 pg/mL (0-79) H 02/07/23 04:10 Total Protein 5.8 g/dL (6.4-8.2) L 02/07/23 04:10 Albumin 1.6 g/dL (3.4-5.0) L 02/07/23 04:10 Globulin 4.2 g/dL (2.5-4.5) 02/07/23 04:10 Albumin/Globulin Ratio 0.4 Ratio (1.1-2.1) L 02/07/23 04:10 Lipase 31 Units/L (73-393) L 02/01/23 08:53 Vitamin B12 1630 pg/mL (193-986) H 02/05/23 04:20 Folate 5.5 ng/mL (>8.6) L 02/05/23 04:20 Specimen Type Clean catch urine 02/01/23 10:26 Urine Color Yellow (YELLOW) 02/01/23 10:26 Urine Appearance Cloudy (CLEAR) 02/01/23 10:26 Urine pH 5.0 (5.0 - 8.0) 02/01/23 10:26 Ur Specific [place] 1.025 (1.000-1.030) 02/01/23 10:26 Urine Protein 3+ (NEGATIVE) 02/01/23 10:26 Urine Glucose (UA) 2+ (NEGATIVE) 02/01/23 10:26 Urine Ketones 2+ (NEGATIVE) 02/01/23 10:26 Urine Blood 4+ (NEGATIVE) 02/01/23 10:26 Urine Nitrite Negative (NEGATIVE) 02/01/23 10:26 Urine Bilirubin Negative (NEGATIVE) 02/01/23 10:26 Urine Urobilinogen 1+ (NORMAL) 02/01/23 10:26 Ur Leukocyte Esterase 3+ (NEGATIVE) 02/01/23 10:26 SARS-CoV-2 (PCR) Negative (NEGATIVE) 02/01/23 08:14 Influenza Type A (PCR) Negative (NEGATIVE) 02/01/23 08:14 Influenza Type B (PCR) Negative (NEGATIVE) 02/01/23 08:14 RSV (PCR) Negative (NEGATIVE) 02/01/23 08:14 - Plan (1) Urinary tract infection Status: Acute Qualifiers: Urinary tract infection type: acute cystitis Hematuria presence: with hematuria Qualified Code(s): N30.01 - Acute cystitis with hematuria Plan: NORMAL SALINE AT 75 ML/HR, INVANZ 1G IV DAILY, PROBIOTICS, OTBS ACHS, HUMULIN R SLIDING SCALE, ZOFRAN 4MG IV Q6H PRN, XOPENEX NEBS QID PRN, LOVENOX 30MG SC DAILY, TYLENOL 1G PO Q6H PRN, LOMOTIL BID PRN, AMARYL 4MG PO BID, APRESOLINE 50MG DAILY. (2) Sepsis Status: Acute Qualifiers: Sepsis type: Escherichia coli Sepsis acute organ dysfunction status: with acute organ dysfunction Severe sepsis acute organ dysfunction type: acute renal failure Severe sepsis shock status: without septic shock Plan: Patient has 2 positive blood culture secondary to each week E. coli. Both are sensitive to Invanz. Continue Invanz daily. (3) Acute renal insufficiency Status: Acute Plan: Continue slow IV hydration. (4) Dehydration Status: Acute Plan: Dehydration is overall improving. Continue slow IV hydration. (5) Intractable nausea and vomiting Status: Acute Plan: Continue as needed Zofran. (6) Shortness of breath Status: Acute Plan: Continue nebs. (7) Hypertension Status: Chronic Qualifiers: Hypertension type: primary hypertension Qualified Code(s): I10 - Essential (primary) hypertension Plan: continue antihypertensives (8) Diabetes mellitus Status: Chronic Qualifiers: Diabetes mellitus type: type 2 Diabetes mellitus longterm insulin use: with longterm use Diabetes mellitus complication status: with hyperglycemia Qualified Code(s): E11.65 - Type 2 diabetes mellitus with hyperglycemia; Z79.4 - custodial (current) use of insulin Plan: continue sliding scale insulin and glimeperide
--- NOTE | 2023-02-07 12:03 | PCM.PROG ---
Progress Note - Progress Note for Day of Date of Exam: 02/07/23 - Subjective Subjective: IS CURRENTLY INPATIENT STATUS FOR TREATMENT OF SEPSIS DUE TO UTI, ACUTE RENAL INSUFFICIENCY, ANEMIA, DEHYDRATION, INTRACTABLE NAUSEA AND VOMITING, AND SHORTNESS OF BREATH. SHE HAS A PMH OF HTN AND DM II. HER BLOOD GLUCOSE LEVELS AND BLOOD PRESSURE HAVE BEEN ELEVATED OVER THE WEEKEND. TODAY, SHE IS ALERT AND ORIENTED, SITTING UP IN CHAIR ON MORNING ROUNDS. SHE COMPLAINS OF INCREASED SHORTNESS OF BREATH AND INCREASED SWELLING THIS MORNING. SHE REPORTS THAT SHE WAS HAVING SOME RESTLESS LEGS, BUT THAT IMPROVED WITH THE REQUIP THAT SHE WAS GIVEN LAST NIGHT. ON EXAMINATION, HEART IS REGULAR IN RATE AND RHYTHM. BILATERAL LUNGS ARE NOTED WITH DIMINISHED LUNG SOUNDS THROUGHOUT. ABDOMEN IS ROUND, SOFT, AND NON-TENDER. NORMAL BOWEL SOUNDS NOTED IN ALL QUADRANTS. GOOD MOVEMENT NOTED TO UPPER AND LOWER EXTREMITIES. 1+ PITTING EDEMA NOTED TO LOWER EXTREMITIES. HER VITALS THIS MORNING ARE: 97.6-80-31-99%-143/91. LABS WERE OBTAINED. WBC 14.4, RBC 2.62, HGB 7.5, HCT 22.6, PLT COUNT 199, SODIUM 134, POTASSIUM 3.9, CHLORIDE 100, BUN 25, CREATININE 1.10, GLUCOSE 232, CALCIUM 8.0, AST 20, ALT 28, ALK PHOS 113, BNP 187, TOTAL PROTEIN 5.8, ALBUMIN 1.6. BLOOD AND URINE CULTURES ARE POSITIVE FOR GROWTH OF E.COLI. WE CHECKED A CHEST XRAY THIS MORNING. IT REVEALED: Increased interstitial changes with prominent vascular markings are observed consistent with underlying CHF. SHE IS CURRENTLY RECEIVING NORMAL SALINE AT 75 ML/HR, INVANZ 1G IV DAILY, OTBS ACHS, HUMULIN R SLIDING SCALE, LEVEMIR 10 UNITS SC BID, COREG 12.5MG BID, COLACE 200MG Q12H PRN, FOLIC ACID 1MG DAILY, LASIX 20MG BID, [place] 5/325MG Q6H PRN, PROBIOTICS DAILY, MORPHINE 1MG IV Q4H PRN, PROTONIX 40MG BID, LYRICA 75MG BID, REQUIP 2MG HS, ZOFRAN 4MG IV Q6H PRN, XOPENEX NEBS QID PRN, LOVENOX 30MG SC DAILY, TYLENOL 1G PO Q6H PRN, LOMOTIL BID PRN, AMARYL 4MG PO BID, APRESOLINE 50MG DAILY. TODAY, WE WILL INCREASE HER LASIX TO 40MG BID. OTHERWISE, WE WILL CONTINUE WITH CURRENT PLAN OF CARE. WE PLAN TO FOLLOW-UP WITH AM LABS AND CONTINUE TO MONITOR. TIME SPENT ON CLINICAL ASSESSMENT, REVIEWING LABS AND IMAGING, DECISION MAKING, AND DOCUMENTATION GREATER THAN 45 MINUTES. - Past Medical Family Social History Past Med/Fam/Surg Hx: No changes since H&P Allergies: Allergies No Known Allergies Allergy (Verified 02/01/23 13:51) - Review of Systems ROS: No change since H&P - Vital Signs and I&O's Vital Signs: Temperature 97.6 F Pulse Rate [Left Radial] 94 Pulse Rate 83 Respiratory Rate 31 Blood Pressure [Left Arm] 126/59 Blood Pressure 143/91 O2 Sat by Pulse Oximetry 98 Intake and Output: Intake & Output 02/05/23 02/06/23 02/07/23 02/08/23 11:59 11:59 11:59 11:59 Intake Total 2690 / 2690 2110 / 2110 1640 / 1640 Balance 2690 / 2690 2110 / 2110 1640 / 1640 - Physical Exam Oriented: Normal Eyes: Normal Ear: Normal Nose: Normal Throat: Normal Respiratory: Generalized, Diminished Cardiovascular: Edema (1+ PITTING EDEMA TO BILATERAL LOWER EXTREMITIES ) : Normal Auscultation: Bowel Sounds: Normal Palpation: Normal Tenderness: Suprapubic Skin: Normal Musculoskeletal: Normal Psychiatric: Normal Mood Description: Calm Affect: Normal Speech Pattern: Clear, Appropriate - Laboratory and Diagnostics Result Diagrams: 02/07/23 04:10 02/07/23 04:10 Labs: 02/01/23 22:36 Blood Blood Culture - Final Escherichia Coli 02/01/23 22:30 Blood Blood Culture - Final Escherichia Coli 02/01/23 10:24 Urine,Clean Catch Urine Culture - Final Escherichia Coli Laboratory WBC 14.4 X10^3/uL (3.6-10.0) H 02/07/23 04:10 RBC 2.62 X10^6/uL (3.5-5.4) L 02/07/23 04:10 Hgb 7.5 g/dL (12.0-16.0) L 02/07/23 04:10 Hct 22.6 % (36.0-47.0) L 02/07/23 04:10 MCV 86.1 fL (80.0-100.0) 02/07/23 04:10 MCH 28.7 pg (27.0-34.0) 02/07/23 04:10 MCHC 33.4 g/dL (33.0-35.0) 02/07/23 04:10 RDW 15.0 % (11.6-16.5) 02/07/23 04:10 Plt Count 199 X10^3/uL (150.0-450.0) 02/07/23 04:10 Plt Count Comment Decreased (ADEQUATE) A 02/03/23 04:13 MPV 9.6 fL (7.4-11.0) 02/07/23 04:10 Neut % (Auto) 77.8 % (42.0-75.0) H 02/07/23 04:10 Lymph % (Auto) 12.7 % (21.0-51.0) L 02/07/23 04:10 [place] % (Auto) 8.7 % (0.0-13.0) 02/07/23 04:10 Eos % (Auto) 0.5 % (0.9-2.9) L 02/07/23 04:10 Baso % (Auto) 0.3 % (0.2-1.0) 02/07/23 04:10 Neut # (Auto) 11.2 x10^3/uL (2.2-4.8) H 02/07/23 04:10 Lymph # (Auto) 1.8 X10^3/uL (1.3-2.9) 02/07/23 04:10 [place] # (Auto) 1.3 x10^3/uL (0.3-0.8) H 02/07/23 04:10 Eos # (Auto) 0.1 x10^3/uL (0.0-0.2) 02/07/23 04:10 Baso # (Auto) 0.0 X10^3/uL (0.0-0.1) 02/07/23 04:10 Absolute Nucleated RBC 0.2 /100WBC 02/07/23 04:10 Total Counted 100 02/03/23 04:13 Neutrophils % (Manual) 92 % (39-76) H 02/03/23 04:13 Band Neutrophils % 7 % (0-10) 02/02/23 04:01 Lymphocytes % (Manual) 7 % (13-43) L 02/03/23 04:13 Monocytes % (Manual) 1 % (4-9) L 02/03/23 04:13 Plt Morphology Comment Normal (NORMAL) 02/03/23 04:13 RBC Morphology Normal (NORMAL) 02/03/23 04:13 Absolute Retic 0.0160 10^6/uL 02/05/23 04:20 Percent Retic 0.53 % (0.8-2.2) L 02/05/23 04:20 Sodium 134 mmol/L (136-145) L 02/07/23 04:10 Corrected Sodium 137 mmol/L (136-145) 02/07/23 04:10 Potassium 3.9 mmol/L (3.5-5.1) 02/07/23 04:10 Chloride 100 mmol/L (98-107) 02/07/23 04:10 Carbon Dioxide 28.3 mmol/L (21-32) 02/07/23 04:10 BUN 25 mg/dL (7-18) H 02/07/23 04:10 Creatinine 1.10 mg/dL (0.55-1.02) H 02/07/23 04:10 Est GFR (MDRD) Af Amer > 60 (>60) 02/07/23 04:10 Est GFR (MDRD) Non-Af 53 (>60) L 02/07/23 04:10 Glucose 232 mg/dL (65-99) H 02/07/23 04:10 POC Glucose (mg/dL) 220 mg/dL (65-99) H 02/07/23 05:49 Calcium 8.0 mg/dL (8.5-10.1) L 02/07/23 04:10 Corrected Calcium 9.9 mg/dL (8.5-10.1) 02/07/23 04:10 Magnesium 2.2 mg/dL (2.0-2.9) 02/06/23 04:15 Iron 14 ug/dL (50-175) L 02/05/23 04:20 Transferrin 163 mg/dL (202-364) L 02/05/23 04:20 Ferritin 848 ng/mL (8-252) H 02/05/23 04:20 Total Bilirubin 0.60 mg/dL (0.2-1.0) 02/07/23 04:10 AST 20 Units/L (15-37) 02/07/23 04:10 ALT 28 Units/L (12-78) 02/07/23 04:10 Alkaline Phosphatase 113 Units/L (46-116) 02/07/23 04:10 B-Natriuretic Peptide 187 pg/mL (0-79) H 02/07/23 04:10 Total Protein 5.8 g/dL (6.4-8.2) L 02/07/23 04:10 Albumin 1.6 g/dL (3.4-5.0) L 02/07/23 04:10 Globulin 4.2 g/dL (2.5-4.5) 02/07/23 04:10 Albumin/Globulin Ratio 0.4 Ratio (1.1-2.1) L 02/07/23 04:10 Lipase 31 Units/L (73-393) L 02/01/23 08:53 Vitamin B12 1630 pg/mL (193-986) H 02/05/23 04:20 Folate 5.5 ng/mL (>8.6) L 02/05/23 04:20 Specimen Type Clean catch urine 02/01/23 10:26 Urine Color Yellow (YELLOW) 02/01/23 10:26 Urine Appearance Cloudy (CLEAR) 02/01/23 10:26 Urine pH 5.0 (5.0 - 8.0) 02/01/23 10:26 Ur Specific [place] 1.025 (1.000-1.030) 02/01/23 10:26 Urine Protein 3+ (NEGATIVE) 02/01/23 10:26 Urine Glucose (UA) 2+ (NEGATIVE) 02/01/23 10:26 Urine Ketones 2+ (NEGATIVE) 02/01/23 10:26 Urine Blood 4+ (NEGATIVE) 02/01/23 10:26 Urine Nitrite Negative (NEGATIVE) 02/01/23 10:26 Urine Bilirubin Negative (NEGATIVE) 02/01/23 10:26 Urine Urobilinogen 1+ (NORMAL) 02/01/23 10:26 Ur Leukocyte Esterase 3+ (NEGATIVE) 02/01/23 10:26 SARS-CoV-2 (PCR) Negative (NEGATIVE) 02/01/23 08:14 Influenza Type A (PCR) Negative (NEGATIVE) 02/01/23 08:14 Influenza Type B (PCR) Negative (NEGATIVE) 02/01/23 08:14 RSV (PCR) Negative (NEGATIVE) 02/01/23 08:14 - Plan (1) Urinary tract infection Status: Acute Qualifiers: Urinary tract infection type: acute cystitis Hematuria presence: with hematuria Qualified Code(s): N30.01 - Acute cystitis with hematuria Plan: NORMAL SALINE AT 75 ML/HR, INVANZ 1G IV DAILY, PROBIOTICS, OTBS ACHS, HUMULIN R SLIDING SCALE, ZOFRAN 4MG IV Q6H PRN, XOPENEX NEBS QID PRN, LOVENOX 30MG SC DAILY, TYLENOL 1G PO Q6H PRN, LOMOTIL BID PRN, AMARYL 4MG PO BID, APRESOLINE 50MG DAILY. (2) Sepsis Status: Acute Qualifiers: Sepsis type: Escherichia coli Sepsis acute organ dysfunction status: with acute organ dysfunction Severe sepsis acute organ dysfunction type: acute renal failure Severe sepsis shock status: without septic shock Plan: Patient has 2 positive blood culture secondary to each week E. coli. Both are sensitive to Invanz. Continue Invanz daily. (3) Acute renal insufficiency Status: Resolved Plan: Continue slow IV hydration. (4) Congestive heart failure Status: Acute Qualifiers: Heart failure type: unspecified Heart failure chronicity: acute Qualified Code(s): I50.9 - Heart failure, unspecified (5) Dehydration Status: Resolved Plan: Dehydration is overall improving. Continue slow IV hydration. (6) Intractable nausea and vomiting Status: Acute Plan: Continue as needed Zofran. (7) Shortness of breath Status: Acute Plan: Continue nebs. (8) Folate deficiency Status: Acute Plan: folate 1 mg p.o. daily. (9) Restless leg syndrome Status: Acute Plan: ropinirole 2 mg at bedtime for better control. (10) Hypertension Status: Chronic Qualifiers: Hypertension type: primary hypertension Qualified Code(s): I10 - Essential (primary) hypertension Plan: continue antihypertensives (11) Diabetes mellitus Status: Chronic Qualifiers: Diabetes mellitus type: type 2 Diabetes mellitus longterm insulin use: with longterm use Diabetes mellitus complication status: with hyperglycemia Qualified Code(s): E11.65 - Type 2 diabetes mellitus with hyperglycemia; Z79.4 - jail (current) use of insulin Plan: continue sliding scale insulin, levemir, and glimeperide
[2023-02-07] MEDS: NovoLIN R (or HumuLIN R) SUBCUT PRN ×3 (12:25→21:26)
[2023-02-07] MEDS: MILK OF MAGNESIA PO SCH ×2 (17:20→18:53)
[2023-02-07] MEDS: SNACK - Diabetic Appropriate PO SCH (20:00)
[2023-02-07] MEDS: BUTT CREAM (COMPOUND) TOP PRN (20:35)
[2023-02-07] MEDS: REQUIP PO SCH (21:25)
[2023-02-07] MEDS: ULTRAM PO PRN (21:26)
[2023-02-08 04:07] VITALS: BP 169/72
[2023-02-08 05:24] LABS: BASOPHILS # (AUTO) 0.1 X10^3/uL (0.0-0.1); BASOPHILS % (AUTO) 0.5 % (0.2-1.0); EOSINOPHILS # (AUTO) 0.1 x10^3/uL (0.0-0.2); EOSINOPHILS % (AUTO) 1.1 % (0.9-2.9); HEMATOCRIT 23.1 % (36.0-47.0); HEMOGLOBIN 7.8 g/dL (12.0-16.0); LYMPHOCYTES # (AUTO) 2.1 X10^3/uL (1.3-2.9); LYMPHOCYTES % (AUTO) 15.6 % (21.0-51.0); MEAN CORPUSCULAR HEMOGLOBIN 29.3 pg (27.0-34.0); MEAN CORPUSCULAR HGB CONC 33.9 g/dL (33.0-35.0); MEAN CORPUSCULAR VOLUME 86.3 fL (80.0-100.0); MEAN PLATELET VOLUME 9.5 fL (7.4-11.0); MONOCYTES # (AUTO) 1.1 x10^3/uL (0.3-0.8); MONOCYTES % (AUTO) 7.7 % (0.0-13.0); NEUTROPHILS # (AUTO) 10.3 x10^3/uL (2.2-4.8); NEUTROPHILS % (AUTO) 75.1 % (42.0-75.0); PLATELET COUNT 277 X10^3/uL (150.0-450.0); RED BLOOD COUNT 2.68 X10^6/uL (3.5-5.4); RED CELL DISTRIBUTION WIDTH 14.8 % (11.6-16.5); WHITE BLOOD COUNT 13.7 X10^3/uL (3.6-10.0)
[2023-02-08 05:33] LABS: ALANINE AMINOTRANSFERASE 33 Units/L (12-78); ALBUMIN 1.7 g/dL (3.4-5.0); ALKALINE PHOSPHATASE 109 Units/L (46-116); ASPARTATE AMINO TRANSFERASE 21 Units/L (15-37); BLOOD UREA NITROGEN 20 mg/dL (7-18); CALCIUM 8.2 mg/dL (8.5-10.1); CARBON DIOXIDE 30.3 mmol/L (21-32); CHLORIDE 101 mmol/L (98-107); COR NA(FOR HYPERGLY) 137 mmol/L (136-145); CREATININE 1.01 mg/dL (0.55-1.02); GLUCOSE 157 mg/dL (65-99); POTASSIUM 3.6 mmol/L (3.5-5.1); SODIUM 136 mmol/L (136-145); eGFR NON BLACK RACES 58 (>60)
--- NOTE | 2023-02-08 06:09 | RAD ---
HISTORYShortness of breath, CHFSTUDYCHEST, 1 [id number] trachea is midline. The cardiac silhouette is enlarged with a tortuous thoracic aorta. Persistent but improved interstitial and vascular changes consistent with CHF.. The bony thorax is unremarkable.IMPRESSIONImproving changes of CHF.Electronically signed by: COLLIN CABRERA (February 08, 2023 06:08:31)
[2023-02-08 07:57] VITALS: TEMP 97.3
[2023-02-08] MEDS: VSL#3 PO SCH (08:21)
[2023-02-08] MEDS: APRESOLINE TAB 25 MG PO SCH (08:21)
[2023-02-08] MEDS: LYRICA CAP 75 mg PO SCH (08:22)
[2023-02-08] MEDS: COLACE CAP 100 MG PO PRN (08:22)
[2023-02-08] MEDS: AMARYL TAB 4 MG PO SCH (08:22)
[2023-02-08] MEDS: COREG TAB 12.5 MG PO SCH (08:22)
[2023-02-08] MEDS: FOLIC ACID TAB 1 MG PO SCH (08:22)
[2023-02-08] MEDS: PROTONIX INJ 40 MG VIAL IVP SCH (08:22)
[2023-02-08] MEDS: INVanz INJ 1 GRAM VIAL 1 G in NS 100 ML IV 100 ML IV SCH (08:22)
[2023-02-08] MEDS: LASIX IVP SCH (08:23)
[2023-02-08] MEDS: MYCOLOG-II CREAM TOP SCH (08:24)
[2023-02-08] MEDS: LEVEMIR SC SCH (08:37)
[2023-02-08 09:19] VITALS: PULSE 85; O2SAT 98
[2023-02-08 10:48] VITALS: BMI 52.4
== END 2023-02-08 12:00 | disposition home health service (06) | DRG 872 ==
LOC: ER 07:53 → U 07:53 → OBSVTOIN 12:41 → U 13:23 → ICU 18:28
PROVIDERS: ADMIT Internal Medicine; ATTEND Internal Medicine
DX: E53.8 Deficiency of other specified B group vitamins; G25.81 Restless legs syndrome; A41.51 Sepsis due to Escherichia coli [E. coli]; E11.65 Type 2 diabetes mellitus with hyperglycemia; I87.2 Venous insufficiency (chronic) (peripheral); D64.9 Anemia, unspecified; Z79.4 Long term (current) use of insulin; Z20.822 Contact with and (suspected) exposure to COVID-19; R06.02 Shortness of breath; N30.01 Acute cystitis with hematuria; N28.9 Disorder of kidney and ureter, unspecified; B96.20 Unspecified Escherichia coli [E. coli] as the cause of diseases classified elsewhere; I10 Essential (primary) hypertension; I50.9 Heart failure, unspecified; E86.0 Dehydration; Z11.52 Encounter for screening for COVID-19; E87.6 Hypokalemia; E11.42 Type 2 diabetes mellitus with diabetic polyneuropathy